=== PATIENT | female | born 1975 | race Caucasian/White ===

== ENCOUNTER 2017-04-01 18:24 | Emergency (ER) | payer SELFPAY, OTHER | END 2017-04-01 22:00 | disposition home or self-care (01) | LOC: M ED 18:24 | DX: J20.9 Acute bronchitis, unspecified (principal) | CPT/HCPCS: 71046 ==

== ENCOUNTER 2017-12-12 17:36 | Emergency (ER) | payer OTHER ==
[2017-12-12] MEDS: LIDOCAINE W/EPINEPHRINE 1% 20ML VIAL SC (18:00)
[2017-12-12] MEDS: NORCO, ANEXSIA 5/325MG TABLET (HYDROcodone/ACETAMINOPHEN) PO (18:30)
[2017-12-12] MEDS: CLINDAMYCIN 150 MG CAP PO (18:30)
== END 2017-12-12 18:49 | disposition home or self-care (01) ==
LOC: M ED 17:36
DX: L02.211 Cutaneous abscess of abdominal wall (principal); D64.9 Anemia, unspecified
CPT/HCPCS: 87186

== ENCOUNTER 2017-12-16 19:18 | Emergency (ER) | payer OTHER | END 2017-12-16 21:59 | disposition home or self-care (01) | LOC: M ED 19:18 | DX: Z48.00 Encounter for change or removal of nonsurgical wound dressing (principal); L02.211 Cutaneous abscess of abdominal wall; D64.9 Anemia, unspecified; Z79.2 Long term (current) use of antibiotics | CPT/HCPCS: 99283 ==

== ENCOUNTER 2018-04-17 10:31 | Emergency (ER) | payer OTHER ==
[~2018-04-17] VITALS: Ht 162.6 cm; Wt 114.1 kg
[~2018-04-17 10:31] MED LIST: CLEO300C2 PO; NORCOTAB PO; TESS100C PO; VENTAER IN
[2018-04-17] MEDS ORDERED: ACET1TAB55 PO (10:37)
[2018-04-17] MEDS ORDERED: CEFU50TA (10:37)
[2018-04-17] MEDS ORDERED: BENZ200C70 PO (12:25)
[2018-04-17] MEDS ORDERED: IBUP-1022 PO (12:25)
[2018-04-17] MEDS ORDERED: CLAR1TAB2 PO (12:25)
[2018-04-17] MEDS ORDERED: AFRI0.0511 (12:25)
[2018-04-17 12:31] VITALS: BP 119/74
== END 2018-04-17 12:37 | disposition home or self-care (01) ==
LOC: M ED 10:31
DX: J01.00 Acute maxillary sinusitis, unspecified (principal); Z79.899 Other long term (current) drug therapy

== ENCOUNTER → 2019-04-21 | Outpatient (REF) ==
[~2019-04-21] MED LIST changes: +ACET1TAB55 PO; +AFRI0.0511; +BENZ200C70 PO; +CEFU50TA; +CLAR1TAB2 PO; +HYDR-3715 PO; +IBUP-1022 PO; -NORCOTAB PO
[2019-04-22 10:45] LABS: RUBELLA IgG QUALITATIVE IMMUNE (IMMUNE)
== END ==
LOC: M LAB 09:42
PROVIDERS: ATTEND Nurse Practitioner Adult Health
DX: Z02.89 Encounter for other administrative examinations (principal)

== ENCOUNTER 2019-07-09 06:22 | Emergency (ER) | payer MEDICAID, OTHER ==
[~2019-07-09] VITALS: Ht 162.6 cm; Wt 104.8 kg
[2019-07-09] MEDS ORDERED: KETOROLAC 30 MG/ML 1ML VIAL IV ONE ×2 (07:00→08:30)
[2019-07-09 07:14] LABS: BASO % 0.4 % (0.0-1.0); EOS # 0.1 10^3/uL (0.0-0.5); EOS % 1.3 % (0.0-3.0); HEMATOCRIT 41.5 % (36.0-47.0); HEMOGLOBIN 12.8 g/dl (12.0-15.5); LYMPH # 1.6 10^3/uL (1.5-5.0); LYMPH % 18.8 % (24.0-44.0); MEAN CORPUSCULAR HEMOGLOBIN 24.3 pg (27.0-33.0); MEAN CORPUSCULAR HGB CONC 30.8 g/dl (32.0-36.5); MEAN CORPUSCULAR VOLUME 78.7 fl (80.0-96.0); MONO # 0.5 10^3/uL (0.0-0.8); MONO % 6.1 % (0.0-5.0); NEUTROPHILS # 6.1 10^3/uL (1.5-8.5); NEUTROPHILS % 73.2 % (36.0-66.0); PLATELET COUNT, AUTOMATED 294 10^3/uL (150-450); RED BLOOD COUNT 5.27 10^6/uL (4.00-5.40); WHITE BLOOD COUNT 8.3 10^3/uL (4.0-10.0)
[2019-07-09 07:46] LABS: ACETONE/KETONE 1.54 MG/DL (<2.81); ALBUMIN 3.7 GM/DL (3.2-5.2); ALT/SGPT 20 U/L (12-78); BILIRUBIN,DIRECT < 0.1 MG/DL (0.0-0.2); BILIRUBIN,TOTAL 0.4 MG/DL (0.2-1.0); CK-MB VALUE MASS < 1.0 NG/ML (<3.6); CPK CREATINE PHOSPHOKINASE 24 U/L (26-192); LIPASE 34 U/L (73-393); MB/CK RELATIVE INDEX 4.17 (< OR =4); TOTAL PROTEIN 7.6 GM/DL (6.4-8.2); TROPONIN I < 0.02 NG/ML (< 0.10)
--- NOTE | 2019-07-09 07:49 | REPVR ---
PROCEDURE INFORMATION: Exam: US Abdomen Limited, Right Upper Quadrant Exam date and time: 07/09/2019 7:07 AM Age: 44 years old Clinical indication: Abdominal pain; Flank; Right upper quadrant (ruq) TECHNIQUE: Imaging protocol: Real-time ultrasound of the abdomen with image documentation. Examination was focused on the right upper quadrant. COMPARISON: No relevant prior studies available. FINDINGS: Liver: The liver is increased in echotexture, suggesting fatty infiltration. There is no demonstrated mass or intrahepatic biliary ductal dilatation, evaluation for which is somewhat limited due to the increased echotexture. Gallbladder: The gallbladder is without demonstrated stones, sludge or wall thickening, and there is no pericholecystic fluid. Some punctate ring down artifact from its anterior wall at the fundus suggests adenomyomatosis. Sonographic Urbina sign was not commented on. Common bile duct: The common bile duct is normal in size for a patient of this age at 4.1 mm. Pancreas: The pancreas is largely obscured by overlying bowel gas. Right kidney: The right kidney measures 12.3 x 5.9 x 6.9 cm. Normal appearing echotexture. There is no hydronephrosis or demonstrated renal stone, cyst or mass. IMPRESSION: 1. Fatty liver. 2. No cholelithiasis or biliary ductal dilatation. 3. Punctate focus of adenomyomatosis at the fundus of the gallbladder. Electronically signed by: Brennen Davis On 07/09/2019 07:48:39 AM
--- NOTE | 2019-07-09 07:50 | REP ---
Clinical: Lower chest and abdominal pain Comparison: 04/01/2017 . Technique: PA and lateral. Findings: The mediastinum and cardiac silhouette are normal. The lung gutierrez are clear and without acute consolidation, effusion, or pneumothorax. The skeletal structures are intact and normal. Impression: 1. No acute cardiopulmonary process. Electronically Signed by Blair Lucero MD 07/09/2019 07:41 A
[2019-07-09] MEDS ORDERED: METF-791 PO (08:26)
[2019-07-09 08:52] LABS: HEMOGLOBIN A1c 11.3 %
[2019-07-09 08:53] VITALS: BP 126/62
--- NOTE | 2019-07-10 01:49 | ECGEPIP ---
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
== END 2019-07-09 08:55 | disposition home or self-care (01) ==
LOC: M ED 06:22
DX: M94.0 Chondrocostal junction syndrome [Tietze] (principal); E11.9 Type 2 diabetes mellitus without complications; K82.8 Other specified diseases of gallbladder; R94.31 Abnormal electrocardiogram [ECG] [EKG]; K76.0 Fatty (change of) liver, not elsewhere classified; D64.9 Anemia, unspecified; Z79.84 Long term (current) use of oral hypoglycemic drugs; Z79.899 Other long term (current) drug therapy
CPT/HCPCS: 71046; 76705; 80047; 80076; 82010; 82550; 82553; 83036; 83690; 84484; 84702; 85025; 93005; 96372; 99284; J1885

== ENCOUNTER → 2019-07-17 | Outpatient (REF) | payer OTHER, BC ==
[~2019-07-17] MED LIST changes: +METF-838 PO
[2019-07-17 17:12] LABS: BASO % 0.4 % (0.0-1.0); EOS # 0.1 10^3/uL (0.0-0.5); EOS % 1.8 % (0.0-3.0); HEMATOCRIT 38.2 % (36.0-47.0); HEMOGLOBIN 11.8 g/dl (12.0-15.5); LYMPH # 1.2 10^3/uL (1.5-5.0); LYMPH % 16.5 % (24.0-44.0); MEAN CORPUSCULAR HEMOGLOBIN 24.6 pg (27.0-33.0); MEAN CORPUSCULAR HGB CONC 30.9 g/dl (32.0-36.5); MEAN CORPUSCULAR VOLUME 79.7 fl (80.0-96.0); MONO # 0.4 10^3/uL (0.0-0.8); MONO % 5.7 % (0.0-5.0); NEUTROPHILS # 5.3 10^3/uL (1.5-8.5); NEUTROPHILS % 75.3 % (36.0-66.0); PLATELET COUNT, AUTOMATED 270 10^3/uL (150-450); RED BLOOD COUNT 4.79 10^6/uL (4.00-5.40); WHITE BLOOD COUNT 7.1 10^3/uL (4.0-10.0)
[2019-07-17 17:18] LABS: ALBUMIN 3.6 GM/DL (3.2-5.2); ALT/SGPT 47 U/L (12-78); BILIRUBIN,TOTAL 0.4 MG/DL (0.2-1.0); BLOOD UREA NITROGEN 17 MG/DL (7-18); CARBON DIOXIDE LEVEL 25 MEQ/L (21-32); CHLORIDE LEVEL 106 MEQ/L (98-107); CREATININE FOR GFR 0.64 MG/DL (0.55-1.30); GLOMERULAR FILTRATION RATE > 60.0 (>58); GLUCOSE, FASTING 265 MG/DL (70-100); POTASSIUM SERUM 3.6 MEQ/L (3.5-5.1); SODIUM LEVEL 138 MEQ/L (136-145); THYROID STIMULATING HORMONE 0.926 uIU/ML (0.358-3.740)
[2019-07-17 17:19] LABS: TOTAL 25(OH) VITAMIN D 11.5 NG/ML (30.0-100.0)
[2019-07-17 17:37] LABS: HEMOGLOBIN A1c 10.9 %
== END ==
LOC: M LAB REF 16:12
PROVIDERS: ATTEND Family Medicine
DX: E11.9 Type 2 diabetes mellitus without complications (principal)

== ENCOUNTER 2019-08-11 09:56 | Emergency (ER) | payer OTHER, BC ==
[~2019-08-11] VITALS: Ht 162.6 cm; Wt 103.8 kg
[2019-08-11] MEDS ORDERED: METF10004 (10:04)
[2019-08-11] MEDS ORDERED: ORPH100T (10:04)
[2019-08-11] MEDS ORDERED: CELE1CAP9 (10:04)
[2019-08-11] MEDS ORDERED: KETOROLAC 60MG 2ML VIAL IM ONE (11:00)
[2019-08-11] MEDS ORDERED: KETO10TAB PO (11:02)
[2019-08-11 11:08] VITALS: BP 149/85
== END 2019-08-11 11:36 | disposition home or self-care (01) ==
LOC: M ED 09:56
DX: M54.5 Low back pain (principal); M54.30 Sciatica, unspecified side; M62.830 Muscle spasm of back
CPT/HCPCS: 96372; 99283; J1885

== ENCOUNTER 2019-09-30 06:59 | Emergency (ER) | payer OTHER, BC ==
[~2019-09-30] VITALS: Ht 162.6 cm; Wt 107.8 kg
[~2019-09-30 06:59] MED LIST changes: +CELE1CAP9; +KETO10TAB PO; +METF10004 PO; +ORPH100T
[2019-09-30] MEDS ORDERED: NAPR1TAB86 PO (07:10)
[2019-09-30 07:50] LABS: BASO % 0.3 % (0.0-1.0); EOS # 0.1 10^3/uL (0.0-0.5); EOS % 1.3 % (0.0-3.0); HEMATOCRIT 38.2 % (36.0-47.0); LYMPH # 1.4 10^3/uL (1.5-5.0); LYMPH % 14.5 % (24.0-44.0); MEAN CORPUSCULAR HEMOGLOBIN 24.9 pg (27.0-33.0); MEAN CORPUSCULAR HGB CONC 31.4 g/dl (32.0-36.5); MEAN CORPUSCULAR VOLUME 79.3 fl (80.0-96.0); MONO # 0.5 10^3/uL (0.0-0.8); MONO % 4.8 % (0.0-5.0); NEUTROPHILS # 7.4 10^3/uL (1.5-8.5); NEUTROPHILS % 78.9 % (36.0-66.0); PLATELET COUNT, AUTOMATED 300 10^3/uL (150-450); RED BLOOD COUNT 4.82 10^6/uL (4.00-5.40); WHITE BLOOD COUNT 9.3 10^3/uL (4.0-10.0)
[2019-09-30 08:19] LABS: ALBUMIN 3.5 GM/DL (3.2-5.2); ALT/SGPT 46 U/L (12-78); BILIRUBIN,DIRECT 0.1 MG/DL (0.0-0.2); BILIRUBIN,TOTAL 0.5 MG/DL (0.2-1.0); BLOOD UREA NITROGEN 9 MG/DL (7-18); CARBON DIOXIDE LEVEL 26 MEQ/L (21-32); CHLORIDE LEVEL 109 MEQ/L (98-107); CREATININE FOR GFR 0.67 MG/DL (0.55-1.30); GLOMERULAR FILTRATION RATE > 60.0 (>58); GLUCOSE, FASTING 135 MG/DL (70-100); LIPASE 32 U/L (73-393); POTASSIUM SERUM 3.6 MEQ/L (3.5-5.1); SODIUM LEVEL 141 MEQ/L (136-145); TOTAL PROTEIN 7.3 GM/DL (6.4-8.2)
[2019-09-30] MEDS ORDERED: ACETAMINOPHEN 500 MG TAB PO ONE (08:30)
[2019-09-30] MEDS ORDERED: IBUPROFEN 600MG TAB PO ONE (08:30)
[2019-09-30] MEDS ORDERED: LIDOCAINE 5% (LIDODERM) PATCH TD ONE (08:30)
[2019-09-30 10:31] VITALS: BP 157/86
[2019-09-30] MEDS ORDERED: **NOTE PATIENT COMMENT** MISC XX SCH (21:00)
== END 2019-09-30 10:36 | disposition home or self-care (01) ==
LOC: M ED 06:59
DX: M51.26 Other intervertebral disc displacement, lumbar region (principal); M51.27 Other intervertebral disc displacement, lumbosacral region; Y99.0 Civilian activity done for income or pay; D64.9 Anemia, unspecified; E11.9 Type 2 diabetes mellitus without complications; Z79.84 Long term (current) use of oral hypoglycemic drugs; Z79.899 Other long term (current) drug therapy

== ENCOUNTER 2019-10-23 10:53 | Emergency (ER) | payer OTHER, BC ==
[~2019-10-23 10:53] MED LIST changes: +NAPR1TAB86 PO
[2019-10-23] MEDS ORDERED: CYCLOBENZAPRINE 10MG TABLET As Ordered ONE (11:25)
[2019-10-23] MEDS ORDERED: CYCLOBENZAPRINE 10MG TABLET ONE (11:25)
[2019-10-23] MEDS ORDERED: KETOROLAC TROMETHAMINE 10 MG TAB ONE (11:25)
[2019-10-23] MEDS ORDERED: KETOROLAC TROMETHAMINE 10 MG TAB As Ordered ONE (11:25)
== END 2019-10-23 11:39 | disposition home or self-care (01) ==
LOC: M ED 10:53
DX: M54.41 Lumbago with sciatica, right side (principal); E11.9 Type 2 diabetes mellitus without complications; Z79.84 Long term (current) use of oral hypoglycemic drugs; Z79.899 Other long term (current) drug therapy

== ENCOUNTER → 2019-11-20 | Outpatient (REF) | payer MEDICAID, OTHER ==
[2019-11-20 13:46] LABS: BASO % 0.3 % (0.0-1.0); EOS # 0.2 10^3/uL (0.0-0.5); EOS % 2.1 % (0.0-3.0); HEMATOCRIT 39.9 % (36.0-47.0); HEMOGLOBIN 12.2 g/dl (12.0-15.5); LYMPH # 1.6 10^3/uL (1.5-5.0); LYMPH % 18.3 % (24.0-44.0); MEAN CORPUSCULAR HEMOGLOBIN 25.1 pg (27.0-33.0); MEAN CORPUSCULAR HGB CONC 30.6 g/dl (32.0-36.5); MEAN CORPUSCULAR VOLUME 82.1 fl (80.0-96.0); MONO # 0.5 10^3/uL (0.0-0.8); MONO % 6.1 % (0.0-5.0); NEUTROPHILS # 6.4 10^3/uL (1.5-8.5); NEUTROPHILS % 72.9 % (36.0-66.0); PLATELET COUNT, AUTOMATED 349 10^3/uL (150-450); RED BLOOD COUNT 4.86 10^6/uL (4.00-5.40); WHITE BLOOD COUNT 8.7 10^3/uL (4.0-10.0)
[2019-11-20 13:47] LABS: BLOOD UREA NITROGEN 13 MG/DL (7-18); CREATININE FOR GFR 0.57 MG/DL (0.55-1.30); GLUCOSE, FASTING 138 MG/DL (70-100)
[2019-11-20 13:48] LABS: ALBUMIN 3.8 GM/DL (3.2-5.2); ALT/SGPT 34 U/L (12-78); BILIRUBIN,TOTAL 0.5 MG/DL (0.2-1.0); CALCIUM LEVEL 9.1 MG/DL (8.5-10.1); CARBON DIOXIDE LEVEL 26 MEQ/L (21-32); CHLORIDE LEVEL 108 MEQ/L (98-107); CHOLESTEROL LEVEL 222 MG/DL (<200); GLOMERULAR FILTRATION RATE > 60.0 (>58); HDL CHOLESTEROL 40 MG/DL (>40); LDL CHOLESTEROL 158 MG/DL (<100); NON-HDL-C 182 MG/DL; POTASSIUM SERUM 3.9 MEQ/L (3.5-5.1); SODIUM LEVEL 138 MEQ/L (136-145); TOTAL PROTEIN 7.5 GM/DL (6.4-8.2); TRIGLYCERIDES LEVEL 120 MG/DL (<150)
[2019-11-20 14:48] LABS: MALB URINE SIEMENS 21.2 MG/L; MAU/CREAT RATIO 10.3 MCG/MG (0.0-30.0)
[2019-11-20 15:14] LABS: HEMOGLOBIN A1c 6.5 %
== END ==
LOC: M LAB REF 12:10
PROVIDERS: ATTEND Physician Assistant
DX: E11.9 Type 2 diabetes mellitus without complications (principal)

== ENCOUNTER → 2019-11-25 | Outpatient (REF) | payer OTHER, MEDICAID | LOC: M LAB REF 17:23 | PROVIDERS: ATTEND Physician Assistant | DX: Z12.4 Encounter for screening for malignant neoplasm of cervix (principal) ==

== ENCOUNTER → 2019-12-04 | Outpatient (CLI) | payer BC, OTHER ==
--- NOTE | 2019-12-09 09:34 | REP ---
PELVIC ULTRASOUND CLINICAL: Enlarged uterus. TECHNIQUE: Transabdominal pelvic ultrasound followed by transvaginal examination for better evaluation of the endometrium and adnexa with color Doppler evaluation of the ovaries. FINDINGS: The uterus is heterogeneous and enlarged measuring 16.8 x 10.1 x 13.2 cm. The endometrial complex is irregularly thickened to 36.7 mm and there is suggestion for an endometrial mass measuring 4.7 x 2.4 x 2.2 cm. Small amount of endocervical fluid is also appreciated. Right ovary not visualized on either transabdominal or transvaginal imaging. Left ovary measures 4.5 x 3.3 x 4.7 cm (RI 0.74) and includes a 3.7 x 3.2 x 4.2 cm complex structure possibly representing mass versus hemorrhagic cyst versus endometrioma. No pelvic fluid or adnexal mass lesion. IMPRESSION: * Enlarged heterogeneous uterus with endometrial thickening and suspected endometrial mass. * Left ovary includes a 4.2 cm complex lesion. Differential diagnosis including hemorrhagic cyst, endometrioma. Consider reevaluation in four to six weeks to evaluate for resolution and/or pelvic MRI for further investigation. MTDD
--- NOTE | 2019-12-09 09:35 | REP ---
LIMITED ABDOMINAL ULTRASOUND: CLINICAL: Splenic mass. TECHNIQUE: Real time, mcnamara scale and color Doppler evaluation using curved array transducer. FINDINGS: The left kidney is normal in appearance and without hydronephrosis measuring 12.1 x 6.1 x 4.8 cm. The spleen is normal in parenchymal echotexture and measures 12.6 x 5.5 x 12.6 cm. No obvious mass lesion in the left upper quadrant. IMPRESSION: Mildly enlarged spleen without focal splenic lesion identified. MTDD
== END ==
LOC: M RAD 08:32
PROVIDERS: ATTEND Physician Assistant
DX: N85.2 Hypertrophy of uterus (principal); R16.1 Splenomegaly, not elsewhere classified

== ENCOUNTER 2020-02-03 07:00 | Outpatient (RCR) | payer OTHER | END 2020-02-08 | LOC: M PT 07:00 | PROVIDERS: ATTEND Physician Assistant | DX: M51.36 Other intervertebral disc degeneration, lumbar region (principal); M48.061 Spinal stenosis, lumbar region without neurogenic claudication ==

== ENCOUNTER 2020-02-10 07:00 | Outpatient (RCR) | payer OTHER | END 2020-03-10 | LOC: M PT 07:00 | PROVIDERS: ATTEND Physician Assistant | DX: Z47.89 Encounter for other orthopedic aftercare (principal); M51.36 Other intervertebral disc degeneration, lumbar region; M48.061 Spinal stenosis, lumbar region without neurogenic claudication ==

== ENCOUNTER → 2020-02-12 | Outpatient (REF) | payer BC, OTHER ==
[2020-02-12 13:15] LABS: ALBUMIN 3.3 GM/DL (3.2-5.2); ALT/SGPT 22 U/L (12-78); BILIRUBIN,TOTAL 0.3 MG/DL (0.2-1.0); BLOOD UREA NITROGEN 12 MG/DL (7-18); CALCIUM LEVEL 8.8 MG/DL (8.5-10.1); CARBON DIOXIDE LEVEL 26 MEQ/L (21-32); CHLORIDE LEVEL 110 MEQ/L (98-107); CREATININE FOR GFR 0.62 MG/DL (0.55-1.30); GLOMERULAR FILTRATION RATE > 60.0 (>58); GLUCOSE, FASTING 143 MG/DL (70-100); POTASSIUM SERUM 4.2 MEQ/L (3.5-5.1); SODIUM LEVEL 141 MEQ/L (136-145); TOTAL PROTEIN 7.1 GM/DL (6.4-8.2)
[2020-02-12 13:25] LABS: HEMOGLOBIN A1c 7.1 %
== END ==
LOC: M LAB REF 12:00
PROVIDERS: ATTEND Physician Assistant
DX: E11.9 Type 2 diabetes mellitus without complications (principal)

== ENCOUNTER → 2020-02-16 | Outpatient (CLI) | payer SELFPAY | LOC: M LABSMTC 14:16 | PROVIDERS: ATTEND Pediatrics | DX: Z11.59 Encounter for screening for other viral diseases (principal) ==

== ENCOUNTER → 2020-05-12 | Outpatient (CLI) | payer OTHER ==
[2020-05-12 11:07] LABS: URINE PREG TEST NEGATIVE (NEGATIVE)
[2020-05-12 11:20] LABS: INR 0.98; PROTHROMBIN TIME 13.2 SECONDS (12.5-14.3)
[2020-05-12 11:21] LABS: PARTIAL THROMBOPLASTIN TIME 25.2 SECONDS (24.2-38.5)
[2020-05-12 11:26] LABS: COLLAGEN EPINEPHRINE 142 SECONDS (74-162)
== END ==
LOC: M LAB 10:24
PROVIDERS: ATTEND Physician Assistant
DX: M47.27 Other spondylosis with radiculopathy, lumbosacral region (principal)

== ENCOUNTER → 2020-06-03 | Outpatient (REF) | payer BC, OTHER ==
[2020-06-03 12:04] LABS: HEMOGLOBIN A1c 8.9 %
[2020-06-03 12:22] LABS: ALBUMIN 3.6 GM/DL (3.2-5.2); ALT/SGPT 25 U/L (12-78); BILIRUBIN,TOTAL 0.3 MG/DL (0.2-1.0); BLOOD UREA NITROGEN 11 MG/DL (7-18); CALCIUM LEVEL 8.9 MG/DL (8.5-10.1); CARBON DIOXIDE LEVEL 24 MEQ/L (21-32); CHLORIDE LEVEL 106 MEQ/L (98-107); CHOLESTEROL LEVEL 192 MG/DL (<200); CHOLESTEROL RISK RATIO 5.485 (<5); CREATININE FOR GFR 0.49 MG/DL (0.55-1.30); GLOMERULAR FILTRATION RATE > 60.0 (>58); GLUCOSE, FASTING 207 MG/DL (70-100); HDL CHOLESTEROL 35 MG/DL (>40); LDL CHOLESTEROL 139 MG/DL (<100); NON-HDL-C 157 MG/DL; POTASSIUM SERUM 3.7 MEQ/L (3.5-5.1); SODIUM LEVEL 139 MEQ/L (136-145); TOTAL PROTEIN 6.9 GM/DL (6.4-8.2); TRIGLYCERIDES LEVEL 90 MG/DL (<150)
== END ==
LOC: M LAB REF 11:14
PROVIDERS: ATTEND Physician Assistant
DX: E11.9 Type 2 diabetes mellitus without complications (principal)

== ENCOUNTER → 2020-06-08 | Outpatient (CLI) | payer OTHER ==
[2020-06-08 07:17] LABS: PLATELET COUNT, AUTOMATED 312 10^3/uL (150-450)
== END ==
LOC: M LAB 06:57
PROVIDERS: ATTEND Physical Medicine & Rehabilitation
DX: Z01.812 Encounter for preprocedural laboratory examination (principal)

== ENCOUNTER → 2020-06-30 | Outpatient (CLI) | payer BC ==
[~2020-06-30] MED LIST changes: +PROHANCE 279.3MG/ML 15ML VIAL As Ordered ONE; +PROHANCE 279.3MG/ML 5ML VIAL As Ordered ONE
--- NOTE | 2020-06-30 15:42 | REP ---
INDICATION: OVARIAN CYST, SPLEENIC MASS, MASS VS ENDOMETRIOMA. COMPARISON: Comparison sonography is reviewed from December 04, 2019. TECHNIQUE: Axial, sagittal, and coronal oblique imaging planes are utilized. T1 and T2 weighted scans are included with without fat saturation. Pre and post gadolinium enhanced imaging is acquired. 20 mL of intravenous ProHance is administered.. FINDINGS: There is moderate to marked heterogeneous uterine enlargement. Overall dimensions the uterus are 14.9 cm in cervical fundal dimension by 10.3 cm anterior to posterior by 11.8 cm right to left there are small nabothian cysts in the cervix. There is diffuse myometrial thickening, posteriorly much greater than anteriorly. The junctional zone is not well defined. There is a lobulated contour to the posterior endometrial surface. The endometrial cavity is displaced anteriorly in the uterus by this eccentrically thickened posterior tissue. The findings are suggestive of adenomyosis but may reflect atypical fibroids. There is no evidence of pelvic adenopathy or free fluid. No ovarian cyst or mass is seen on either side at this juncture. Cortical and medullary bone signal intensity are normal. IMPRESSION: Heterogeneous enlargement of the uterus with poor visualization and definition of the junctional zone. Findings most consistent with uterine adenomyosis. Differential possibilities include uterine leiomyoma ptosis versus other uterine neoplasm. <Electronically signed by Darron Collins > 06/30/20 [id number]
--- NOTE | 2020-06-30 15:45 | REP ---
INDICATION: OVARIAN CYST, SPLEENIC MASS, MASS VS ENDOMETRIOMA. Slightly enlarged spleen on imaging. Complex ovarian cyst versus mass versus endometrioma. COMPARISON: Comparison right upper quadrant sonography July 09, 2019.. TECHNIQUE: Axial and coronal imaging planes utilized. T1 and T2 weighted sequences include spin echo, fast spin echo, diffusion-weighted scans, gradient echo, in and out of phase, and dynamic post-contrast images. 20 mL of intravenous ProHance is administered. FINDINGS: Rrrrrrr the spleen is at the upper range of normal in size measuring 12.3 cm in greatest dimension. There is no significant focal splenic lesion. The liver is homogeneous in texture and appears normal in size. No adrenal lesion is seen on either side. There is a small accessory splenule posterior to the spleen. No renal lesion is seen. No abnormality is noted in the pancreas. No biliary ductal or gallbladder abnormality is appreciated. The gallbladder is largely contracted at the time of scanning. Diffusion-weighted imaging is unremarkable. There is no evidence of upper abdominal adenopathy or ascites. Dynamically acquired sequential postcontrast images show no abnormal area of contrast enhancement in the upper abdominal viscera. IMPRESSION: Borderline size spleen. Small accessory splenule. Otherwise negative. <Electronically signed by Darron Collins > 06/30/20 [id number]
== END ==
LOC: M RAD 12:32
PROVIDERS: ATTEND Physician Assistant
DX: N83.299 Other ovarian cyst, unspecified side (principal)

== ENCOUNTER → 2020-09-10 | Outpatient (CLI) | payer OTHER ==
[~2020-09-10] MED LIST changes: +FARX1TAB3 PO; +METF-877 PO; -PROHANCE 279.3MG/ML 15ML VIAL As Ordered ONE; -PROHANCE 279.3MG/ML 5ML VIAL As Ordered ONE
== END ==
LOC: M LABSMTC 09:09
PROVIDERS: ATTEND Anesthesiology
DX: Z20.828 Contact with and (suspected) exposure to other viral communicable diseases (principal); Z11.59 Encounter for screening for other viral diseases

== ENCOUNTER 2020-09-15 10:36 | Day surgery (SDC) | payer BC, OTHER ==
[~2020-09-15] VITALS: Ht 162.6 cm; Wt 110.9 kg
[~2020-09-15 10:36] MED LIST changes: +KETOROLAC 60MG 2ML VIAL As Ordered ONE; +LIDOCAINE 2% 100MG/5ML SDV (FOR ANES.) As Ordered ONE; +LIDOCAINE 2% INJ 100 MG/5 ML SYRINGE As Ordered ONE; +LR 1,000 ML IV ONE; +LR 1,000 ML IV SCH; +MIDAZOLAM INJ 2MG/2ML VIAL (J2250 PER 1MG) As Ordered ONE; +ONDANSETRON 4MG/2ML VIAL As Ordered ONE; +dexameTHASONE 4 MG/ML 1ML VIAL (J1100 PER 1MG) As Ordered ONE; +fentaNYL 100 MCG/2 ML INJECTION (J3010) As Ordered ONE; +propofoL 200 MG/20 ML VIAL As Ordered ONE
[2020-09-15] MEDS ORDERED: SUGAMMADEX SODIUM 500 MG/5 ML VIAL (BRIDION) As Ordered ONE (12:39)
[2020-09-15] MEDS ORDERED: ROCURONIUM BROMIDE 50 MG/5 ML VIAL As Ordered ONE ×2 (12:39→12:57)
[2020-09-15] MEDS ORDERED: LABETALOL 100MG/20ML VIAL As Ordered ONE (13:35)
[2020-09-15] MEDS ORDERED: fentaNYL 100 MCG/2 ML INJECTION (J3010) As Ordered ONE (13:37)
[2020-09-15] MEDS ORDERED: MEPERIDINE INJ 25 MG/ML VIAL (J2175) IV PRN (14:20)
[2020-09-15] MEDS ORDERED: oxyCODONE 5MG TAB PO PRN (14:20)
[2020-09-15] MEDS ORDERED: fentaNYL 100 MCG/2 ML INJECTION (J3010) IV PRN (14:20)
[2020-09-15] MEDS ORDERED: ONDANSETRON 4MG/2ML VIAL IV PRN (14:20)
[2020-09-15] MEDS ORDERED: LR 1,000 ML IV SCH ×2 (14:20→15:25)
[2020-09-15] MEDS ORDERED: ALBUTEROL SULFATE 2.5 MG/0.5 ML INH NEB SOLN INH ONE (14:50)
--- NOTE | 2020-09-15 15:23 | RO ---
OPERATIVE NOTE DATE OF OPERATION: 09/15/2020 PREOPERATIVE DIAGNOSIS/INDICATION FOR SURGERY: Bleeding and abnormal ultrasound. POSTOPERATIVE DIAGNOSIS: Bleeding and abnormal ultrasound with excessive overgrowth of endometrium noted. PROCEDURE: D&C, hysteroscopy, MyoSure resection. 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 ANESTHESIA: General endotracheal. SPECIMEN: Endometrial overgrowth, possible lesion. DESCRIPTION OF PROCEDURE/FINDINGS: Maco was brought to the operating room where sufficient general endotracheal anesthesia was induced. She was prepped, draped and positioned in the usual sterile fashion. Bladder was emptied. The anterior aspect of the cervix was grasped with single tooth tenaculum and this well supported uterus. The cervix was then carefully dilated and hysteroscope placed. Multiple polypoid overgrowths were noted with frond-like hypervascular concerning appearance. I did not see any ulcerations or active bleeding. The cavity was definitely enlarged and filled with this. We did resect with the MyoSure under direct visualization to make sure that we did not have any perforations even though the cavity was somewhat enlarged. We really could not, when we were resecting with the MyoSure, the hypervascularity led to quite a bit of bleeding which led to poor visualization. We switched over to curettage, especially since I was expecting the pathologist to prefer a larger sample and there was clearly a larger sample to be had. It was also clear that we would not be able to completely empty the endometrial cavity with the MyoSure even if we worked for a protracted period of time, there would just be so much vascularity that the risk of fluid overload was too great. We switched over to more traditional curettage and multiple large samples, some of them up to a centimeter across, were obtained. When we had a reasonable good sample and not excessive bleeding we went ahead and stopped. I massaged the uterus a little bit and ended the procedure. EBL: Maybe 10 mL. FLUID REPLACEMENT: Crystalloid. COMPLICATIONS: None. CONDITION AND DISPOSITION: Maco tolerated the procedure well and was recovering in the recovery room in good condition. Pathology went to the pathologist for permanent evaluation and we will let her know as soon as we have those results.
[2020-09-15 15:55] VITALS: BP 141/77
[2020-09-16] MEDS ORDERED: UNRESOLVED CLARIFICATION ENTRY XX SCH (00:01)
== END 2020-09-15 16:12 | disposition home or self-care (01) ==
LOC: M SDC 10:36
PROVIDERS: ATTEND Obstetrics & Gynecology
DX: C54.1 Malignant neoplasm of endometrium (principal); N85.2 Hypertrophy of uterus; R93.89 Abnormal findings on diagnostic imaging of other specified body structures; E11.9 Type 2 diabetes mellitus without complications; E78.5 Hyperlipidemia, unspecified; G44.219 Episodic tension-type headache, not intractable; R16.1 Splenomegaly, not elsewhere classified; M51.14 Intervertebral disc disorders with radiculopathy, thoracic region; N83.292 Other ovarian cyst, left side; Z79.84 Long term (current) use of oral hypoglycemic drugs
CPT/HCPCS: 58558; 81025; 88304; J1100; J1885; J2250; J2405; J3010

== ENCOUNTER 2020-10-04 01:10 | Emergency (ER) | payer BC, OTHER ==
[~2020-10-04] VITALS: Ht 162.6 cm; Wt 109.0 kg
[~2020-10-04 01:10] MED LIST changes: -KETOROLAC 60MG 2ML VIAL As Ordered ONE; -LIDOCAINE 2% 100MG/5ML SDV (FOR ANES.) As Ordered ONE; -LIDOCAINE 2% INJ 100 MG/5 ML SYRINGE As Ordered ONE; -LR 1,000 ML IV ONE; -LR 1,000 ML IV SCH; -MIDAZOLAM INJ 2MG/2ML VIAL (J2250 PER 1MG) As Ordered ONE; -ONDANSETRON 4MG/2ML VIAL As Ordered ONE; -dexameTHASONE 4 MG/ML 1ML VIAL (J1100 PER 1MG) As Ordered ONE; -fentaNYL 100 MCG/2 ML INJECTION (J3010) As Ordered ONE; -propofoL 200 MG/20 ML VIAL As Ordered ONE
[2020-10-04 05:32] VITALS: BP 142/66
== END 2020-10-04 06:58 | disposition left against medical advice (07) ==
LOC: M ED 01:10
DX: Z53.21 Procedure and treatment not carried out due to patient leaving prior to being seen by health care provider (principal)

== ENCOUNTER 2020-10-05 11:19 | Emergency (ER) | payer BC, OTHER ==
[~2020-10-05] VITALS: Ht 162.6 cm; Wt 108.7 kg
--- NOTE | 2020-10-05 14:50 | REP ---
INDICATION: mid to lower rib pain after fall. COMPARISON: Comparison chest x-ray July 09, 2019.. TECHNIQUE: Five views including PA chest. FINDINGS: PA chest radiograph shows no evidence of pneumothorax or hydrothorax. Mediastinum is not widened. Pleural angles are sharp. Heart size is normal. Lung gutierrez are clear. Multiple views of the left ribcage show no evidence of rib fracture or bony destructive lesion. IMPRESSION: Negative left rib radiographic series. <Electronically signed by Darron Collins > 10/05/20 [id number]
[2020-10-05] MEDS ORDERED: IBUPROFEN 800 MG TAB PO ONE (15:15)
[2020-10-05 15:41] VITALS: BP 135/60
--- NOTE | 2020-10-05 16:11 | REP ---
INDICATION: pain and bruising after fall. COMPARISON: None. TECHNIQUE: Four views FINDINGS: Plantar and Achilles insertion spurs are prominent on posterior calcaneus. Subtalar joints intact. Calcaneus and talus without fracture. Accessory ossicle adjacent to the medial proximal aspect of the navicular. Tarsal bones and their articulations otherwise normal. Metatarsals and their articulations were also unremarkable with no fracture, avulsion other acute bony abnormality. Phalanges show a subtle lucency transversely in the proximal diametaphysis of the proximal phalanx of the 5th toe. This could be a nondisplaced fracture. IMPRESSION: 1. Subtle transverse lucency in the proximal metadiaphysis of the proximal phalanx of the 5th toe on 3 of 4 images suggesting nondisplaced fracture. Please correlate clinically with palpation. I have placed arrows on the images over the area in question. No other finding. <Electronically signed by Emerson Antonio > 10/05/20 [id number]
== END 2020-10-05 15:43 | disposition home or self-care (01) ==
LOC: M ED 11:19
DX: S92.515A Nondisplaced fracture of proximal phalanx of left lesser toe(s), initial encounter for closed fracture (principal); R07.81 Pleurodynia; W01.0XXA Fall on same level from slipping, tripping and stumbling without subsequent striking against object, initial encounter; Y92.019 Unspecified place in single-family (private) house as the place of occurrence of the external cause; Y93.9 Activity, unspecified; Y99.9 Unspecified external cause status; E11.9 Type 2 diabetes mellitus without complications; D64.9 Anemia, unspecified; Z79.899 Other long term (current) drug therapy

== ENCOUNTER → 2020-10-05 | Outpatient (CLI) | payer OTHER, BC ==
[2020-10-05 11:10] LABS: BASO % 0.3 % (0.0-1.0); EOS # 0.2 10^3/uL (0.0-0.5); EOS % 1.6 % (0.0-3.0); HEMATOCRIT 34.6 % (36.0-47.0); LYMPH # 1.3 10^3/uL (1.5-5.0); LYMPH % 13.3 % (24.0-44.0); MEAN CORPUSCULAR HEMOGLOBIN 21.2 pg (27.0-33.0); MEAN CORPUSCULAR HGB CONC 28.9 g/dl (32.0-36.5); MEAN CORPUSCULAR VOLUME 73.5 fl (80.0-96.0); MONO # 0.5 10^3/uL (0.0-0.8); MONO % 4.9 % (2.0-8.0); NEUTROPHILS # 7.9 10^3/uL (1.5-8.5); NEUTROPHILS % 79.6 % (36.0-66.0); PLATELET COUNT, AUTOMATED 373 10^3/uL (150-450); RED BLOOD COUNT 4.71 10^6/uL (4.00-5.40); WHITE BLOOD COUNT 9.9 10^3/uL (4.0-10.0)
[2020-10-05 11:30] LABS: C REACTIVE PROTEIN QUANTITATIV 2.43 MG/DL (0.00-0.30); RHEUMATOID FACTOR QUANT < 10.0 IU/ML (<15.0); URIC ACID 2.7 MG/DL (2.6-6.0)
[2020-10-05 11:31] LABS: ERYTHROCYTE SEDIMENTATION RATE 58 mm/hr (0-20)
== END ==
LOC: M LAB 10:30
PROVIDERS: ATTEND Physician Assistant Surgical
DX: M47.27 Other spondylosis with radiculopathy, lumbosacral region (principal)

== ENCOUNTER → 2021-02-06 | Outpatient (CLI) | payer OTHER | LOC: M PLAIMG 14:05 | PROVIDERS: ATTEND Physician Assistant Surgical | DX: M47.27 Other spondylosis with radiculopathy, lumbosacral region (principal); M51.26 Other intervertebral disc displacement, lumbar region; M51.27 Other intervertebral disc displacement, lumbosacral region ==

== ENCOUNTER → 2021-03-23 | Outpatient (CLI) | payer BC, MEDICAID | LOC: M WHC 09:44 | PROVIDERS: ATTEND Pediatrics | DX: Z12.31 Encounter for screening mammogram for malignant neoplasm of breast (principal); E89.41 Symptomatic postprocedural ovarian failure; Z13.820 Encounter for screening for osteoporosis; M85.88 Other specified disorders of bone density and structure, other site ==

== ENCOUNTER → 2021-04-04 | Outpatient (CLI) | payer BC, MEDICAID | LOC: M LAB 06:30 | PROVIDERS: ATTEND Physical Medicine & Rehabilitation | DX: M51.27 Other intervertebral disc displacement, lumbosacral region (principal) ==

== ENCOUNTER → 2021-05-08 | Outpatient (RCR) | payer OTHER | LOC: M PT 07:58 | PROVIDERS: ATTEND Physical Medicine & Rehabilitation | DX: M47.26 Other spondylosis with radiculopathy, lumbar region (principal) ==

== ENCOUNTER → 2021-06-29 | Outpatient (CLI) | payer BC, MEDICAID ==
[~2021-06-29] MED LIST changes: +ATOR40TA75; +NAPR-837 PO; +SEMA7TAB2
== END ==
LOC: M SOG 08:12
PROVIDERS: ATTEND Physician Assistant
DX: M19.041 Primary osteoarthritis, right hand (principal); M19.042 Primary osteoarthritis, left hand; M79.645 Pain in left finger(s)

== ENCOUNTER → 2021-07-07 | Outpatient (CLI) | payer BC, MEDICAID | LOC: M LABSMTC 11:43 | PROVIDERS: ATTEND Anesthesiology | DX: Z01.812 Encounter for preprocedural laboratory examination (principal); Z20.822 Contact with and (suspected) exposure to COVID-19 ==

== ENCOUNTER 2021-07-12 07:01 | Day surgery (SDC) | payer BC, MEDICAID ==
[~2021-07-12] VITALS: Ht 162.6 cm; Wt 114.8 kg
[~2021-07-12 07:01] MED LIST changes: +LIDOCAINE W/EPINEPHRINE 1% 20ML VIAL XX ONE; +SODIUM BICARBONATE 8.4% INJ 50MEQ 50 ML VIAL XX ONE
[2021-07-12 10:30] VITALS: BP 120/76
== END 2021-07-12 10:37 | disposition home or self-care (01) ==
LOC: M SDC 07:01
PROVIDERS: ATTEND Orthopaedic Surgery Hand Surgery
DX: M65.312 Trigger thumb, left thumb (principal); E78.5 Hyperlipidemia, unspecified; E11.9 Type 2 diabetes mellitus without complications; Z85.42 Personal history of malignant neoplasm of other parts of uterus; Z79.84 Long term (current) use of oral hypoglycemic drugs; Z79.899 Other long term (current) drug therapy

== ENCOUNTER → 2021-07-24 | Outpatient (CLI) | payer BC, MEDICAID ==
[~2021-07-24] MED LIST changes: -LIDOCAINE W/EPINEPHRINE 1% 20ML VIAL XX ONE; -SODIUM BICARBONATE 8.4% INJ 50MEQ 50 ML VIAL XX ONE
== END ==
LOC: M LABSMTC 09:32
PROVIDERS: ATTEND Anesthesiology
DX: Z01.812 Encounter for preprocedural laboratory examination (principal); Z20.822 Contact with and (suspected) exposure to COVID-19

== ENCOUNTER 2021-07-28 08:31 | Day surgery (SDC) | payer BC, MEDICAID ==
[~2021-07-28] VITALS: Ht 162.6 cm; Wt 115.1 kg
[~2021-07-28 08:31] MED LIST changes: +ATOR40TA75 PO; +LIDOCAINE W/EPINEPHRINE 1% 20ML VIAL XX ONE; +MELO15TA28 PO; +SEMA3TAB4 PO; -SEMA7TAB2; +SEMA7TAB2 PO; +SODIUM BICARBONATE 8.4% INJ 50MEQ 50 ML VIAL XX ONE
[2021-07-28] MEDS ORDERED: propofoL 200 MG/20 ML VIAL As Ordered ONE (09:20)
[2021-07-28] MEDS ORDERED: LIDOCAINE 2% 100MG/5ML SDV (FOR ANES.) As Ordered ONE (09:20)
[2021-07-28] MEDS ORDERED: MIDAZOLAM INJ 2MG/2ML VIAL (J2250 PER 1MG) As Ordered ONE (09:20)
[2021-07-28] MEDS ORDERED: fentaNYL 100 MCG/2 ML INJECTION As Ordered ONE (09:20)
[2021-07-28] MEDS ORDERED: KETAMINE HCL 200 MG/20 ML VIAL As Ordered ONE (09:21)
[2021-07-28] MEDS ORDERED: KETOROLAC 60MG 2ML VIAL As Ordered ONE (09:21)
[2021-07-28] MEDS ORDERED: ONDANSETRON 4MG/2ML VIAL As Ordered ONE (09:21)
[2021-07-28] MEDS ORDERED: dexameTHASONE 4 MG/ML 1ML VIAL (J1100 PER 1MG) As Ordered ONE (09:21)
[2021-07-28] MEDS ORDERED: BACITRACIN OINTMENT 30GM TUBE As Ordered ONE (10:19)
[2021-07-28 11:12] VITALS: BP 121/90
[2021-07-28] MEDS ORDERED: TRAM50TA2 PO (11:14)
== END 2021-07-28 11:44 | disposition home or self-care (01) ==
LOC: M SDC 08:31
PROVIDERS: ATTEND Orthopaedic Surgery Hand Surgery
DX: M65.331 Trigger finger, right middle finger (principal); E78.5 Hyperlipidemia, unspecified; E11.9 Type 2 diabetes mellitus without complications; Z79.84 Long term (current) use of oral hypoglycemic drugs; Z79.899 Other long term (current) drug therapy

== ENCOUNTER → 2021-08-20 | Outpatient (CLI) | payer BC, MEDICAID ==
[~2021-08-20] MED LIST changes: -LIDOCAINE W/EPINEPHRINE 1% 20ML VIAL XX ONE; -SODIUM BICARBONATE 8.4% INJ 50MEQ 50 ML VIAL XX ONE; +TRAM50TA2 PO
== END ==
LOC: M LABSMTC 11:12
PROVIDERS: ATTEND Anesthesiology
DX: Z20.828 Contact with and (suspected) exposure to other viral communicable diseases (principal); Z11.59 Encounter for screening for other viral diseases

== ENCOUNTER 2021-08-23 07:58 | Day surgery (SDC) | payer BC, MEDICAID ==
[~2021-08-23] VITALS: Ht 162.6 cm; Wt 114.2 kg
[~2021-08-23 07:58] MED LIST changes: +LIDOCAINE 2% 100MG/5ML SDV (FOR ANES.) As Ordered ONE; +NS 1,000 ML IV ONE; +propofoL 200 MG/20 ML VIAL As Ordered ONE
[2021-08-23] MEDS ORDERED: fentaNYL 100 MCG/2 ML INJECTION As Ordered ONE (07:59)
[2021-08-23] MEDS ORDERED: propofoL 200 MG/20 ML VIAL As Ordered ONE (09:53)
[2021-08-23 10:53] VITALS: BP 122/76
== END 2021-08-23 10:55 | disposition home or self-care (01) ==
LOC: M OPP 07:58
PROVIDERS: ATTEND Surgery
DX: D50.9 Iron deficiency anemia, unspecified (principal); D17.79 Benign lipomatous neoplasm of other sites; K44.9 Diaphragmatic hernia without obstruction or gangrene; E78.5 Hyperlipidemia, unspecified; G47.30 Sleep apnea, unspecified; E11.9 Type 2 diabetes mellitus without complications; Z79.84 Long term (current) use of oral hypoglycemic drugs; Z79.899 Other long term (current) drug therapy
CPT/HCPCS: 43235; 45385; 88305; J3010

== ENCOUNTER → 2021-09-03 | Outpatient (CLI) | payer BC, MEDICAID ==
[~2021-09-03] MED LIST changes: -LIDOCAINE 2% 100MG/5ML SDV (FOR ANES.) As Ordered ONE; -NS 1,000 ML IV ONE; -propofoL 200 MG/20 ML VIAL As Ordered ONE
== END ==
LOC: M LABSMTC 10:16
PROVIDERS: ATTEND Anesthesiology
DX: Z20.828 Contact with and (suspected) exposure to other viral communicable diseases (principal); Z11.59 Encounter for screening for other viral diseases

== ENCOUNTER 2021-09-06 08:04 | Day surgery (SDC) | payer BC, MEDICAID ==
[~2021-09-06] VITALS: Ht 162.6 cm; Wt 116.0 kg
[~2021-09-06 08:04] MED LIST changes: +LIDOCAINE W/EPINEPHRINE 1% 20ML VIAL XX ONE; +SODIUM BICARBONATE 8.4% INJ 50MEQ 50 ML VIAL XX ONE
[2021-09-06] MEDS ORDERED: BACITRACIN OINTMENT 30GM TUBE As Ordered ONE (09:58)
[2021-09-06 10:30] VITALS: BP 181/82
[2021-09-06] MEDS ORDERED: TRAM50TA2 PO (10:45)
== END 2021-09-06 10:51 | disposition home or self-care (01) ==
LOC: M SDC 08:04
PROVIDERS: ATTEND Orthopaedic Surgery Hand Surgery
DX: M65.311 Trigger thumb, right thumb (principal); E11.9 Type 2 diabetes mellitus without complications; E78.5 Hyperlipidemia, unspecified; Z79.84 Long term (current) use of oral hypoglycemic drugs; Z79.899 Other long term (current) drug therapy

== ENCOUNTER 2021-10-13 16:52 | Emergency (ER) | payer BC, MEDICAID ==
[~2021-10-13] VITALS: Ht 162.6 cm; Wt 113.4 kg
[~2021-10-13 16:52] MED LIST changes: -LIDOCAINE W/EPINEPHRINE 1% 20ML VIAL XX ONE; -SODIUM BICARBONATE 8.4% INJ 50MEQ 50 ML VIAL XX ONE
[2021-10-13] MEDS ORDERED: dexameTHASONE 4 MG/ML 1ML VIAL (J1100 PER 1MG) IV ONE (19:00)
[2021-10-13] MEDS ORDERED: BENZONATATE 100MG CAPSULE PO ONE (19:00)
[2021-10-13] MEDS ORDERED: ISOVUE-370 76% 100ML VIAL As Ordered ONE (19:06)
[2021-10-13] MEDS: COMBIVENT RESPIMAT 100-20MCG INHALER 4GM INH SCH ×3 (19:20→19:40)
[2021-10-13 19:47] LABS: VENOUS HCO3 25.2 MEQ/L (23.0-27.0); VENOUS O2 SATURATION 78.6 % (60.0-80.0); VENOUS PARTIAL PRESSURE CO2 42.8 mmHg (38.0-50.0); VENOUS PARTIAL PRESSURE O2 44.2 mmHg (30.0-50.0); VENOUS PH 7.387 UNITS (7.330-7.430); VENOUS STANDARD HCO3 24.1 MEQ/L; VENOUS TOTAL CO2 26.5 MEQ/L (24.0-28.0)
[2021-10-13 19:50] LABS: BASO % 0.3 % (0.0-1.0); EOS # 0.1 10^3/uL (0.0-0.5); EOS % 1.3 % (0.0-3.0); HEMATOCRIT 39.4 % (36.0-47.0); LYMPH # 1.4 10^3/uL (1.5-5.0); LYMPH % 20.8 % (24.0-44.0); MEAN CORPUSCULAR HEMOGLOBIN 22.9 pg (27.0-33.0); MEAN CORPUSCULAR HGB CONC 30.5 g/dl (32.0-36.5); MONO # 0.3 10^3/uL (0.0-0.8); MONO % 4.7 % (2.0-8.0); NEUTROPHILS # 4.9 10^3/uL (1.5-8.5); NEUTROPHILS % 72.6 % (36.0-66.0); PLATELET COUNT, AUTOMATED 298 10^3/uL (150-450); RED BLOOD COUNT 5.25 10^6/uL (4.00-5.40); WHITE BLOOD COUNT 6.8 10^3/uL (4.0-10.0)
[2021-10-13] MEDS ORDERED: BENZ200C70 PO (21:05)
[2021-10-13] MEDS ORDERED: PRED20TA PO (21:05)
[2021-10-13] MEDS ORDERED: PROAAER10 INH (21:05)
[2021-10-13] MEDS ORDERED: BEBTELOVIMAB 175MG 2ML VIAL (EUA) IV ONE (21:15)
[2021-10-13] MEDS ORDERED: ALBUTEROL 90 MCG/ACT 8GM HFA INHALER INH ONE (21:15)
[2021-10-13 22:32] VITALS: BP 138/69
== END 2021-10-13 23:43 | disposition home or self-care (01) ==
LOC: M ED 16:52
DX: U07.1 COVID-19 (principal); R06.00 Dyspnea, unspecified; R00.0 Tachycardia, unspecified; E11.9 Type 2 diabetes mellitus without complications; E78.5 Hyperlipidemia, unspecified; Z79.51 Long term (current) use of inhaled steroids; Z79.899 Other long term (current) drug therapy
CPT/HCPCS: 71045; 71275; 80047; 82803; 84484; 84702; 85025; 93005; 94640; 96374; 96375; 99284; J1100; Q9967

== ENCOUNTER → 2021-11-17 | Outpatient (CLI) | payer BC, MEDICAID ==
[~2021-11-17] MED LIST changes: +PRED20TA PO; +PROAAER10 INH
== END ==
LOC: M WHC 13:47
PROVIDERS: ATTEND Pediatrics
DX: E04.1 Nontoxic single thyroid nodule (principal)

== ENCOUNTER → 2021-12-20 | Outpatient (REF) | payer BC, MEDICAID | LOC: M PLALAB 12:13 | PROVIDERS: ATTEND Nurse Practitioner Family | DX: C55 Malignant neoplasm of uterus, part unspecified (principal) | CPT/HCPCS: 87624; G0123 ==

== ENCOUNTER → 2021-12-25 | Outpatient (REF) | payer BC, MEDICAID ==
[2021-12-25 17:48] LABS: C REACTIVE PROTEIN QUANTITATIV 2.24 MG/DL (0.00-0.30); MAGNESIUM LEVEL 2.2 MG/DL (1.8-2.4)
[2021-12-25 18:23] LABS: TOTAL 25(OH) VITAMIN D 12.9 NG/ML (30.0-100.0)
== END ==
LOC: M SFHCRHEU 15:48
PROVIDERS: ATTEND Internal Medicine
DX: R79.82 Elevated C-reactive protein (CRP) (principal); R70.0 Elevated erythrocyte sedimentation rate; R53.82 Chronic fatigue, unspecified

== ENCOUNTER → 2022-02-13 | Outpatient (CLI) | payer BC, MEDICAID ==
[~2022-02-13] MED LIST changes: +FERR325T81 PO; +LIDOCAINE 1% MDV 20ML VIAL As Ordered ONE; +NYST-13 EXT; +VITA500045 PO
[2022-02-13 10:10] VITALS: BP 169/84
== END ==
LOC: M IRPRO 08:54
PROVIDERS: ATTEND Otolaryngology
DX: E04.1 Nontoxic single thyroid nodule (principal)

== ENCOUNTER → 2022-03-19 | Outpatient (CLI) | payer OTHER, BC, MEDICAID ==
[~2022-03-19] MED LIST changes: -LIDOCAINE 1% MDV 20ML VIAL As Ordered ONE
[2022-03-19 07:24] LABS: PLATELET COUNT, AUTOMATED 247 10^3/uL (150-450)
[2022-03-19 07:58] LABS: INR 0.93; PROTHROMBIN TIME 12.7 SECONDS (12.5-14.5)
[2022-03-19 07:59] LABS: PARTIAL THROMBOPLASTIN TIME 22.8 SECONDS (24.8-34.2)
== END ==
LOC: M LAB 06:38
PROVIDERS: ATTEND Physician Assistant Surgical
DX: M43.16 Spondylolisthesis, lumbar region (principal)

== ENCOUNTER → 2022-03-30 | Outpatient (REF) | payer BC, MEDICAID, OTHER ==
[~2022-03-30] MED LIST changes: +ERGO500029; +JARD1TAB3 PO; +SEMA14TA2
[2022-03-30 17:59] LABS: BASO % 0.3 % (0.0-1.0); EOS # 0.1 10^3/uL (0.0-0.5); EOS % 1.5 % (0.0-3.0); HEMATOCRIT 38.7 % (36.0-47.0); HEMOGLOBIN 11.8 g/dl (12.0-15.5); LYMPH # 1.8 10^3/uL (1.5-5.0); LYMPH % 26.9 % (24.0-44.0); MEAN CORPUSCULAR HEMOGLOBIN 23.8 pg (27.0-33.0); MEAN CORPUSCULAR HGB CONC 30.5 g/dl (32.0-36.5); MONO # 0.4 10^3/uL (0.0-0.8); MONO % 5.9 % (2.0-8.0); NEUTROPHILS # 4.4 10^3/uL (1.5-8.5); NEUTROPHILS % 65.1 % (36.0-66.0); PLATELET COUNT, AUTOMATED 273 10^3/uL (150-450); RED BLOOD COUNT 4.96 10^6/uL (4.00-5.40); WHITE BLOOD COUNT 6.8 10^3/uL (4.0-10.0)
[2022-03-30 18:21] LABS: BLOOD UREA NITROGEN 13 MG/DL (9-23); CALCIUM LEVEL 9.1 MG/DL (8.5-10.1); CARBON DIOXIDE LEVEL 27 MMOL/L (20-31); CHLORIDE LEVEL 100 MMOL/L (98-107); CREATININE FOR GFR 0.45 MG/DL (0.55-1.30); GLOMERULAR FILTRATION RATE > 60.0 (>58); GLUCOSE, FASTING 262 MG/DL (60-100); POTASSIUM SERUM 4.1 MMOL/L (3.5-5.1); SODIUM LEVEL 135 MMOL/L (136-145)
== END ==
LOC: M LAB REF 16:26
PROVIDERS: ATTEND Pediatrics
DX: Z01.818 Encounter for other preprocedural examination (principal)

== ENCOUNTER → 2022-04-01 | Outpatient (CLI) | payer BC, MEDICAID ==
[~2022-04-01] MED LIST changes: +AMOX500C PO; +BACI50OI TOP; +CALC1CAP31 PO; +CALC200T15 PO; +GOOD200C PO; +LEVO175C PO; +LEVO175T2 PO; +MAGN400T2 PO; +OXYC1TAB23 PO; +ROCA0.25 PO; +TRAD5TAB PO; +VITA100093 PO
== END ==
LOC: M LABSMTC 09:50
PROVIDERS: ATTEND Anesthesiology
DX: Z01.818 Encounter for other preprocedural examination (principal)

== ENCOUNTER 2022-04-05 09:39 | Inpatient (IN) | payer BC, MEDICAID ==
[~2022-04-05] VITALS: Ht 162.6 cm; Wt 113.3 kg
[~2022-04-05 09:39] MED LIST changes: -AMOX500C PO; -BACI50OI TOP; -CALC1CAP31 PO; -CALC200T15 PO; -GOOD200C PO; -LEVO175C PO; -LEVO175T2 PO; -MAGN400T2 PO; -OXYC1TAB23 PO; -ROCA0.25 PO; -TRAD5TAB PO; -VITA100093 PO
[2022-04-05] MEDS ORDERED: LR 1,000 ML IV SCH (10:20)
[2022-04-05] MEDS ORDERED: INSULIN LISPRO (NovoLOG) PER UNIT SC PRN ×2 (10:20→16:05)
[2022-04-05] MEDS ORDERED: propofoL 200 MG/20 ML VIAL As Ordered ONE (10:46)
[2022-04-05] MEDS ORDERED: ROCURONIUM BROMIDE 50MG/5ML VIAL As Ordered ONE (10:46)
[2022-04-05] MEDS ORDERED: LIDOCAINE 2% 100MG/5ML SDV (FOR ANES.) As Ordered ONE (10:46)
[2022-04-05] MEDS ORDERED: fentaNYL 250 MCG/5 ML INJECTION As Ordered ONE (10:46)
[2022-04-05] MEDS ORDERED: SUCCINYLCHOLINE 100MG/5ML SYRINGE As Ordered ONE (10:46)
[2022-04-05] MEDS ORDERED: LIDOCAINE W/EPINEPHRINE 1% 20ML VIAL As Ordered ONE (10:47)
[2022-04-05] MEDS ORDERED: MIDAZOLAM INJ 2MG/2ML VIAL As Ordered ONE (10:47)
[2022-04-05] MEDS ORDERED: LACRILUBE (AKWA TEARS) OPHTH OINT 3.5GM As Ordered ONE (12:08)
[2022-04-05] MEDS ORDERED: HYDROmorphone HCL 2MG/ML 1ML VIAL As Ordered ONE (12:32)
[2022-04-05 12:42] LABS: CALCIUM LEVEL 8.4 MG/DL (8.5-10.1)
[2022-04-05 12:43] LABS: PTH INTACT 73.5 PG/ML (18.5-88.0)
[2022-04-05] MEDS ORDERED: LABETALOL 100MG/20ML VIAL As Ordered ONE (12:54)
[2022-04-05] MEDS ORDERED: METOCLOPRAMIDE INJ 10MG/2ML VIAL As Ordered ONE (15:20)
[2022-04-05] MEDS ORDERED: ACETAMINOPHEN 1000MG 100ML IV BAG As Ordered ONE (15:20)
[2022-04-05] MEDS ORDERED: ONDANSETRON 4MG 2ML VIAL As Ordered ONE (15:20)
[2022-04-05] MEDS ORDERED: KETOROLAC 60MG 2ML VIAL As Ordered ONE (15:20)
[2022-04-05] MEDS ORDERED: ONDANSETRON 4MG 2ML VIAL IV PRN ×2 (15:50→16:40)
[2022-04-05] MEDS ORDERED: fentaNYL 100 MCG/2 ML INJECTION IV PRN (15:50)
[2022-04-05] MEDS ORDERED: oxyCODONE 5MG TAB PO PRN (15:50)
[2022-04-05] MEDS ORDERED: INSULIN LISPRO (NovoLOG) PER UNIT SC ONE ×2 (16:05→17:20)
[2022-04-05] MEDS ORDERED: ANEXSIA, NORCO 7.5MG/325MG TABLET(HYDROCODONE/APAP) PO PRN (16:45)
[2022-04-05 17:00] LABS: HEMATOCRIT 35.2 % (36.0-47.0); HEMOGLOBIN 10.7 g/dl (12.0-15.5); MEAN CORPUSCULAR HEMOGLOBIN 23.5 pg (27.0-33.0); MEAN CORPUSCULAR HGB CONC 30.4 g/dl (32.0-36.5); MEAN CORPUSCULAR VOLUME 77.4 fl (80.0-96.0); PLATELET COUNT, AUTOMATED 234 10^3/uL (150-450); RED BLOOD COUNT 4.55 10^6/uL (4.00-5.40)
[2022-04-05] MEDS ORDERED: GLUCOSE 4GM CHEW TABLET PO PRN (17:20)
[2022-04-05] MEDS ORDERED: GLUCAGON INJ 1MG VIAL SC PRN (17:20)
[2022-04-05] MEDS ORDERED: DEXTROSE 50% 50ML SYRINGE IV PRN (17:20)
[2022-04-05 17:27] LABS: MAGNESIUM LEVEL 1.4 MG/DL (1.8-2.4)
[2022-04-05 17:28] LABS: PHOSPHORUS LEVEL 4.8 MG/DL (2.5-4.9)
[2022-04-05 17:28] LABS: BLOOD UREA NITROGEN 16 MG/DL (9-23); CARBON DIOXIDE LEVEL 25 MMOL/L (20-31); CHLORIDE LEVEL 104 MMOL/L (98-107); CREATININE FOR GFR 0.45 MG/DL (0.55-1.30); GLOMERULAR FILTRATION RATE > 60.0 (>58); GLUCOSE, FASTING 356 MG/DL (60-100); SODIUM LEVEL 140 MMOL/L (136-145)
[2022-04-05 17:30] LABS: PTH INTACT 27.3 PG/ML (18.5-88.0)
[2022-04-05] MEDS ORDERED: LEVEMIR (INSULIN DETEMIR) 1 UNITS/0.01ML SC STA (18:15)
[2022-04-05 18:50] VITALS: BP 130/73
[2022-04-05 19:03] LABS: ALBUMIN 3.2 G/DL (3.2-5.2); ALKALINE PHOSPHATASE 157 U/L (46-116); ALT/SGPT 32 U/L (7.0-40); AST/SGOT 21 U/L (<34); BILIRUBIN,DIRECT 0.1 MG/DL (<0.4); BILIRUBIN,TOTAL 0.3 MG/DL (0.3-1.2); TOTAL PROTEIN 5.8 G/DL (5.7-8.2)
[2022-04-05] MEDS: LR 1,000 ML IV SCH (19:10)
[2022-04-05] MEDS: INSULIN LISPRO (NovoLOG) PER UNIT SC SCH ×2 (19:11→21:00)
[2022-04-05] MEDS: MAG SULF 1GM/100ML (MAG RUN) 1 GM in IV 1 EA IV SCH ×2 (19:13→20:58)
[2022-04-05 19:20] VITALS: BP 141/80
[2022-04-05] MEDS: LEVOTHYROXINE 125MCG TABLET (0.125MG) PO SCH (20:13)
[2022-04-05] MEDS: CALCITRIOL 0.25 MCG CAP (S0169) PO SCH (20:14)
[2022-04-05] MEDS: CALCIUM CARBONATE 500 MG CHEW U/D PO SCH (20:14)
[2022-04-05 20:15] VITALS: BP 117/71
[2022-04-05] MEDS ORDERED: LEVEMIR (INSULIN DETEMIR) 1 UNITS/0.01ML SC SCH (21:00)
[2022-04-05] MEDS: ANEXSIA, NORCO 7.5MG/325MG TABLET(HYDROCODONE/APAP) PO PRN (21:03)
[2022-04-05 21:15] VITALS: BP 119/65
[2022-04-05 21:30] LABS: MAGNESIUM LEVEL 1.6 MG/DL (1.8-2.4)
[2022-04-05 21:32] LABS: ALBUMIN 3.1 G/DL (3.2-5.2); BLOOD UREA NITROGEN 13 MG/DL (9-23); CALCIUM LEVEL 7.7 MG/DL (8.5-10.1); CARBON DIOXIDE LEVEL 25 MMOL/L (20-31); CHLORIDE LEVEL 104 MMOL/L (98-107); CREATININE FOR GFR 0.41 MG/DL (0.55-1.30); GLOMERULAR FILTRATION RATE > 60.0 (>58); GLUCOSE, FASTING 257 MG/DL (60-100); POTASSIUM SERUM 3.9 MMOL/L (3.5-5.1); SODIUM LEVEL 139 MMOL/L (136-145)
[2022-04-05] MEDS ORDERED: LEVEMIR (INSULIN DETEMIR) 1 UNITS/0.01ML SC ONE (22:00)
[2022-04-05 22:15] VITALS: BP 106/56
[2022-04-05 23:25] VITALS: BP 101/53
[2022-04-06] VITALS (8 sets, daily range): BP systolic 104–141; BP diastolic 68–88
[2022-04-06 03:37] LABS: BLOOD UREA NITROGEN 9 MG/DL (9-23); CALCIUM LEVEL 7.4 MG/DL (8.5-10.1); CARBON DIOXIDE LEVEL 27 MMOL/L (20-31); CHLORIDE LEVEL 104 MMOL/L (98-107); GLOMERULAR FILTRATION RATE > 60.0 (>58); GLUCOSE, FASTING 195 MG/DL (60-100); POTASSIUM SERUM 3.6 MMOL/L (3.5-5.1); SODIUM LEVEL 137 MMOL/L (136-145)
[2022-04-06] MEDS: ANEXSIA, NORCO 7.5MG/325MG TABLET(HYDROCODONE/APAP) PO PRN ×3 (03:45→20:25)
[2022-04-06] MEDS: LR 1,000 ML IV SCH ×2 (03:46→13:50)
[2022-04-06] MEDS: LEVOTHYROXINE 125MCG TABLET (0.125MG) PO SCH (05:22)
[2022-04-06 06:20] LABS: HEMATOCRIT 34.5 % (36.0-47.0); HEMOGLOBIN 10.4 g/dl (12.0-15.5); MEAN CORPUSCULAR HEMOGLOBIN 23.7 pg (27.0-33.0); MEAN CORPUSCULAR HGB CONC 30.1 g/dl (32.0-36.5); MEAN CORPUSCULAR VOLUME 78.6 fl (80.0-96.0); PLATELET COUNT, AUTOMATED 221 10^3/uL (150-450); RED BLOOD COUNT 4.39 10^6/uL (4.00-5.40); WHITE BLOOD COUNT 6.8 10^3/uL (4.0-10.0)
[2022-04-06 06:54] LABS: MAGNESIUM LEVEL 1.7 MG/DL (1.8-2.4)
[2022-04-06 06:55] LABS: CALCIUM LEVEL 7.4 MG/DL (8.5-10.1); PHOSPHORUS LEVEL 4.5 MG/DL (2.5-4.9)
[2022-04-06 08:14] LABS: ALBUMIN 2.9 G/DL (3.2-5.2); BLOOD UREA NITROGEN 9 MG/DL (9-23); CARBON DIOXIDE LEVEL 25 MMOL/L (20-31); CHLORIDE LEVEL 105 MMOL/L (98-107); CREATININE FOR GFR 0.53 MG/DL (0.55-1.30); GLOMERULAR FILTRATION RATE > 60.0 (>58); GLUCOSE, FASTING 207 MG/DL (60-100); POTASSIUM SERUM 3.9 MMOL/L (3.5-5.1); SODIUM LEVEL 140 MMOL/L (136-145)
[2022-04-06] MEDS: CALCITRIOL 0.25 MCG CAP (S0169) PO SCH ×2 (09:04→20:24)
[2022-04-06] MEDS: CALCIUM CARBONATE 500 MG CHEW U/D PO SCH ×4 (09:04→20:24)
[2022-04-06] MEDS: MAG SULF 1GM/100ML (MAG RUN) 1 GM in IV 1 EA IV SCH ×2 (09:08→10:17)
[2022-04-06] MEDS: INSULIN LISPRO (NovoLOG) PER UNIT SC SCH ×4 (09:09→20:26)
[2022-04-06 09:50] LABS: BLOOD UREA NITROGEN 9 MG/DL (9-23); CALCIUM LEVEL 7.2 MG/DL (8.5-10.1); CARBON DIOXIDE LEVEL 27 MMOL/L (20-31); CHLORIDE LEVEL 104 MMOL/L (98-107); CREATININE FOR GFR 0.45 MG/DL (0.55-1.30); GLOMERULAR FILTRATION RATE > 60.0 (>58); GLUCOSE, FASTING 217 MG/DL (60-100); POTASSIUM SERUM 3.5 MMOL/L (3.5-5.1); SODIUM LEVEL 138 MMOL/L (136-145)
[2022-04-06] MEDS ORDERED: EXCEDRIN MIGRAINE TABLET PO ONE (10:00)
[2022-04-06 11:27] LABS: ALBUMIN 2.7 G/DL (3.2-5.2)
[2022-04-06] MEDS: BACITRACIN OINTMENT 30GM TUBE TOP SCH ×2 (11:45→20:29)
[2022-04-06] MEDS: HEPARIN SOD (PORCINE) 5000UNITS/ML 1ML VIAL/SYRINGE SQ SCH ×2 (13:50→20:25)
[2022-04-06 16:01] LABS: BLOOD UREA NITROGEN 8 MG/DL (9-23); CALCIUM LEVEL 7.3 MG/DL (8.5-10.1); CARBON DIOXIDE LEVEL 27 MMOL/L (20-31); CHLORIDE LEVEL 106 MMOL/L (98-107); CREATININE FOR GFR 0.44 MG/DL (0.55-1.30); GLOMERULAR FILTRATION RATE > 60.0 (>58); GLUCOSE, FASTING 294 MG/DL (60-100); POTASSIUM SERUM 3.3 MMOL/L (3.5-5.1); SODIUM LEVEL 139 MMOL/L (136-145)
[2022-04-06] MEDS ORDERED: POTASSIUM CHLORIDE 10MEQ SR TABLET PO ONE (16:40)
[2022-04-06] MEDS ORDERED: POTASSIUM CHLORIDE 10% LIQ 20MEQ/15ML UDC PO ONE (17:10)
[2022-04-06] MEDS: MAGNESIUM OXIDE 400MG TAB (MAG-OX) PO SCH (20:24)
[2022-04-06] MEDS ORDERED: LEVEMIR (INSULIN DETEMIR) 1 UNITS/0.01ML SC SCH (21:00)
[2022-04-06 21:44] LABS: BLOOD UREA NITROGEN 9 MG/DL (9-23); CALCIUM LEVEL 7.5 MG/DL (8.5-10.1); CARBON DIOXIDE LEVEL 26 MMOL/L (20-31); CHLORIDE LEVEL 106 MMOL/L (98-107); GLOMERULAR FILTRATION RATE > 60.0 (>58); GLUCOSE, FASTING 237 MG/DL (60-100); POTASSIUM SERUM 3.8 MMOL/L (3.5-5.1); SODIUM LEVEL 141 MMOL/L (136-145)
[2022-04-07] MEDS: ANEXSIA, NORCO 7.5MG/325MG TABLET(HYDROCODONE/APAP) PO PRN ×3 (01:26→09:49)
[2022-04-07 02:00] VITALS: BP 142/88
[2022-04-07] MEDS: HEPARIN SOD (PORCINE) 5000UNITS/ML 1ML VIAL/SYRINGE SQ SCH ×2 (05:32→14:31)
[2022-04-07 06:00] VITALS: BP 140/89
[2022-04-07] MEDS ORDERED: LEVOTHYROXINE 125MCG TABLET (0.125MG) PO SCH (06:00)
[2022-04-07] MEDS ORDERED: LEVOTHYROXINE 50MCG TABLET (0.05MG) PO SCH (06:00)
[2022-04-07 07:12] LABS: BLOOD UREA NITROGEN 8 MG/DL (9-23); CALCIUM LEVEL 7.4 MG/DL (8.5-10.1); CARBON DIOXIDE LEVEL 27 MMOL/L (20-31); CHLORIDE LEVEL 106 MMOL/L (98-107); CREATININE FOR GFR 0.45 MG/DL (0.55-1.30); GLOMERULAR FILTRATION RATE > 60.0 (>58); GLUCOSE, FASTING 187 MG/DL (60-100); MAGNESIUM LEVEL 1.7 MG/DL (1.8-2.4); PHOSPHORUS LEVEL 4.1 MG/DL (2.5-4.9); POTASSIUM SERUM 3.9 MMOL/L (3.5-5.1); SODIUM LEVEL 141 MMOL/L (136-145)
[2022-04-07 08:00] VITALS: BP 142/79
[2022-04-07 08:00] LABS: ALBUMIN 2.9 G/DL (3.2-5.2)
[2022-04-07] MEDS: CALCITRIOL 0.25 MCG CAP (S0169) PO SCH (09:34)
[2022-04-07] MEDS: MAGNESIUM OXIDE 400MG TAB (MAG-OX) PO SCH (09:34)
[2022-04-07] MEDS: BACITRACIN OINTMENT 30GM TUBE TOP SCH (09:35)
[2022-04-07] MEDS: INSULIN LISPRO (NovoLOG) PER UNIT SC SCH ×3 (09:36→16:48)
[2022-04-07] MEDS: CALCIUM CARBONATE 500 MG CHEW U/D PO SCH ×3 (09:47→16:48)
[2022-04-07 10:00] VITALS: BP 144/79
[2022-04-07] MEDS ORDERED: MORPHINE 2 MG/ML 1ML VIAL IV ONE (12:00)
[2022-04-07] MEDS ORDERED: MAG SULF 1GM/100ML (MAG RUN) 1 GM in IV 1 EA IV ONE (12:00)
[2022-04-07] MEDS ORDERED: TRAD5TAB PO (12:04)
[2022-04-07] MEDS ORDERED: OXYC1TAB23 PO (12:07)
[2022-04-07] MEDS ORDERED: CALC200T15 PO (12:12)
[2022-04-07] MEDS ORDERED: BACI50OI TOP (12:12)
[2022-04-07] MEDS ORDERED: MAGN400T2 PO (12:12)
[2022-04-07] MEDS ORDERED: LEVO175C PO (12:12)
[2022-04-07] MEDS ORDERED: CALC1CAP31 PO (12:12)
[2022-04-07 13:50] LABS: HEMOGLOBIN A1c 11.5 % (4.0-6.0)
[2022-04-07 14:00] VITALS: BP 140/70
[2022-04-07 14:03] LABS: ALBUMIN 2.8 G/DL (3.2-5.2); BLOOD UREA NITROGEN 8 MG/DL (9-23); CALCIUM LEVEL 7.4 MG/DL (8.5-10.1); CARBON DIOXIDE LEVEL 27 MMOL/L (20-31); CHLORIDE LEVEL 106 MMOL/L (98-107); CREATININE FOR GFR 0.44 MG/DL (0.55-1.30); GLOMERULAR FILTRATION RATE > 60.0 (>58); GLUCOSE, FASTING 267 MG/DL (60-100); MAGNESIUM LEVEL 1.8 MG/DL (1.8-2.4); POTASSIUM SERUM 3.7 MMOL/L (3.5-5.1); SODIUM LEVEL 140 MMOL/L (136-145)
[2022-04-07] MEDS ORDERED: AMOX500C PO (14:47)
== END 2022-04-07 17:30 | disposition home or self-care (01) | DRG 404 ==
LOC: M SDC 09:39 → M MSPAV 16:27
PROVIDERS: ADMIT Internal Medicine; ATTEND Internal Medicine
PROC: 0GTK0ZZ Resection of Thyroid Gland, Open Approach (ICD-10-PCS; principal; 2022-04-05 11:30)
DX: C73 Malignant neoplasm of thyroid gland (principal); I10 Essential (primary) hypertension; E66.2 Morbid (severe) obesity with alveolar hypoventilation; Z68.41 Body mass index [BMI] 40.0-44.9, adult; E11.9 Type 2 diabetes mellitus without complications; D50.9 Iron deficiency anemia, unspecified; E83.42 Hypomagnesemia; J98.11 Atelectasis; E83.51 Hypocalcemia; E55.9 Vitamin D deficiency, unspecified; M85.88 Other specified disorders of bone density and structure, other site; M54.16 Radiculopathy, lumbar region; Z90.79 Acquired absence of other genital organ(s); Z79.84 Long term (current) use of oral hypoglycemic drugs; E03.9 Hypothyroidism, unspecified

== ENCOUNTER → 2022-04-09 | Outpatient (CLI) | payer BC, MEDICAID ==
[~2022-04-09] MED LIST changes: +AMOX500C PO; +BACI50OI TOP; +CALC1CAP31 PO; +CALC200T15 PO; +LEVO175C PO; +MAGN400T2 PO; +OXYC1TAB23 PO; +TRAD5TAB PO
[2022-04-09 18:00] LABS: CALCIUM LEVEL 8.8 MG/DL (8.5-10.1)
[2022-04-09 18:03] LABS: THYROID STIMULATING HORMONE 2.375 uIU/ML (0.55-4.78)
== END ==
LOC: M LAB 14:26
PROVIDERS: ATTEND Otolaryngology
DX: C73 Malignant neoplasm of thyroid gland (principal)

== ENCOUNTER → 2022-04-16 | Outpatient (CLI) | payer BC, MEDICAID ==
[2022-04-16 13:28] LABS: CALCIUM LEVEL 9.3 MG/DL (8.5-10.1)
[2022-04-16 13:33] LABS: THYROID STIMULATING HORMONE 5.477 uIU/ML (0.55-4.78)
== END ==
LOC: M LAB 12:01
PROVIDERS: ATTEND Otolaryngology
DX: C73 Malignant neoplasm of thyroid gland (principal)

== ENCOUNTER → 2022-04-16 | Outpatient (CLI) | payer BC, MEDICAID | LOC: M RAD 12:05 | PROVIDERS: ATTEND Pediatrics | DX: J98.11 Atelectasis (principal) ==

== ENCOUNTER 2022-04-22 22:46 | Inpatient (IN) | payer BC, MEDICAID ==
[~2022-04-22] VITALS: Ht 162.6 cm; Wt 121.1 kg
[2022-04-22] MEDS ORDERED: GOOD200C PO (22:52)
[2022-04-22] MEDS ORDERED: PIPERACILLIN/TAZOBACTAM SOD 4.5 GM in D5W MINI-BAG PLUS 50 ML IV ONE (23:25)
[2022-04-22] MEDS ORDERED: NS IV ONE (23:30)
[2022-04-22] MEDS ORDERED: ISOVUE-370 76% 100ML VIAL As Ordered ONE (23:34)
[2022-04-22 23:51] LABS: BASO % 0.1 % (0.0-1.0); HEMATOCRIT 36.9 % (36.0-47.0); HEMOGLOBIN 11.3 g/dl (12.0-15.5); LYMPH # 0.8 10^3/uL (1.5-5.0); LYMPH % 7.1 % (24.0-44.0); MEAN CORPUSCULAR HEMOGLOBIN 24.4 pg (27.0-33.0); MEAN CORPUSCULAR HGB CONC 30.6 g/dl (32.0-36.5); MEAN CORPUSCULAR VOLUME 79.7 fl (80.0-96.0); MONO # 0.7 10^3/uL (0.0-0.8); MONO % 6.9 % (2.0-8.0); NEUTROPHILS # 9.2 10^3/uL (1.5-8.5); NEUTROPHILS % 85.2 % (36.0-66.0); PLATELET COUNT, AUTOMATED 313 10^3/uL (150-450); RED BLOOD COUNT 4.63 10^6/uL (4.00-5.40); WHITE BLOOD COUNT 10.8 10^3/uL (4.0-10.0)
[2022-04-22] MEDS ORDERED: LIDOCAINE 1% MDV 20ML VIAL SC ONE (23:55)
[2022-04-23 00:01] LABS: ERYTHROCYTE SEDIMENTATION RATE 122 mm/hr (0-20)
[2022-04-23 00:20] LABS: RSV AMPLIFICATION NEGATIVE (NEGATIVE)
[2022-04-23] MEDS ORDERED: CLINDAMYCIN 900 MG in IV 1 EA IV ONE (00:50)
[2022-04-23] MEDS ORDERED: ROCA0.25 PO (00:53)
[2022-04-23] MEDS ORDERED: LEVO175T2 PO (00:53)
[2022-04-23] MEDS ORDERED: TRAD5TAB PO (00:53)
[2022-04-23] MEDS ORDERED: VITA100093 PO (00:57)
[2022-04-23] MEDS ORDERED: HOME MED LIST COMPLETE! XX SCH (01:00)
[2022-04-23] MEDS ORDERED: NORCO, ANEXSIA 5/325MG TABLET (HYDROcodone/ACETAMINOPHEN) PO PRN (01:55)
[2022-04-23] MEDS ORDERED: GLUCOSE 4GM CHEW TABLET PO PRN ×2 (02:25→14:45)
[2022-04-23] MEDS ORDERED: DEXTROSE 50% 50ML SYRINGE IV PRN ×2 (02:25→14:45)
[2022-04-23] MEDS ORDERED: GLUCAGON INJ 1MG VIAL SC PRN ×2 (02:25→14:45)
[2022-04-23] MEDS ORDERED: SENOKOT S TAB PO PRN (02:45)
[2022-04-23] MEDS ORDERED: POTASSIUM CHLORIDE 10MEQ SR TABLET PO ONE (03:00)
[2022-04-23] MEDS: D5W/0.45% SODIUM CHLORIDE 1,000 ML IV SCH ×2 (03:24→20:43)
[2022-04-23 03:35] VITALS: BP 129/68
[2022-04-23] MEDS: LEVOTHYROXINE 150MCG TABLET (0.15MG) PO SCH (04:18)
[2022-04-23] MEDS: LEVOTHYROXINE 25MCG TABLET (0.025MG) PO SCH (04:18)
[2022-04-23] MEDS: HYDROMORPHONE HCL 0.5 MG/ 0.5 ML SYRINGE IV PRN ×4 (04:19→22:53)
[2022-04-23] MEDS ORDERED: POTASSIUM CHLORIDE 10% LIQ 20MEQ/15ML UDC PO ONE (05:00)
[2022-04-23] MEDS: PIPERACILLIN/TAZOBACTAM SOD 4.5 GM in D5W MINI-BAG PLUS 50 ML IV SCH ×3 (05:15→17:14)
[2022-04-23 06:00] VITALS: BP 127/68
[2022-04-23] MEDS: INSULIN LISPRO (NovoLOG) PER UNIT SC SCH ×2 (06:00→12:21)
[2022-04-23 06:49] LABS: BASO % 0.1 % (0.0-1.0); EOS % 0.1 % (0.0-3.0); HEMATOCRIT 35.9 % (36.0-47.0); HEMOGLOBIN 10.6 g/dl (12.0-15.5); LYMPH # 0.7 10^3/uL (1.5-5.0); LYMPH % 7.3 % (24.0-44.0); MEAN CORPUSCULAR HEMOGLOBIN 24.2 pg (27.0-33.0); MEAN CORPUSCULAR HGB CONC 29.5 g/dl (32.0-36.5); MONO # 0.6 10^3/uL (0.0-0.8); MONO % 7.1 % (2.0-8.0); NEUTROPHILS # 7.6 10^3/uL (1.5-8.5); NEUTROPHILS % 85.1 % (36.0-66.0); PLATELET COUNT, AUTOMATED 293 10^3/uL (150-450); RED BLOOD COUNT 4.38 10^6/uL (4.00-5.40); WHITE BLOOD COUNT 8.9 10^3/uL (4.0-10.0)
[2022-04-23 07:04] LABS: BLOOD UREA NITROGEN 8 MG/DL (9-23); CALCIUM LEVEL 8.3 MG/DL (8.5-10.1); CARBON DIOXIDE LEVEL 17 MMOL/L (20-31); CHLORIDE LEVEL 108 MMOL/L (98-107); CREATININE FOR GFR 0.42 MG/DL (0.55-1.30); GLOMERULAR FILTRATION RATE > 60.0 (>58); GLUCOSE, FASTING 136 MG/DL (60-100); MAGNESIUM LEVEL 1.9 MG/DL (1.8-2.4); POTASSIUM SERUM 4.2 MMOL/L (3.5-5.1); SODIUM LEVEL 139 MMOL/L (136-145)
[2022-04-23] MEDS: CLINDAMYCIN 900 MG in IV 1 EA IV SCH ×2 (09:18→18:49)
[2022-04-23] MEDS: VITAMIN D 1,000 INTERNATIONAL UNITS TABLET PO SCH (09:18)
[2022-04-23] MEDS: CALCITRIOL 0.25 MCG CAP (S0169) PO SCH ×2 (09:18→20:43)
[2022-04-23] MEDS: DOCUSATE SODIUM 100MG CAPSULE PO SCH ×2 (09:18→20:43)
[2022-04-23] MEDS: MAGNESIUM OXIDE 400MG TAB (MAG-OX) PO SCH ×2 (09:19→20:43)
[2022-04-23 14:00] VITALS: BP 126/69
[2022-04-23] MEDS ORDERED: INSULIN LISPRO (NovoLOG) PER UNIT SC SCH ×2 (17:30→21:00)
[2022-04-23] MEDS: LACTOBACILLUS ACIDOPHILUS CAP (BACID) PO SCH (18:27)
[2022-04-23] MEDS: FERROUS SULFATE 325MG TAB PO SCH (20:43)
[2022-04-23 21:00] VITALS: BP 123/72
[2022-04-24] VITALS (8 sets, daily range): BP systolic 108–134; BP diastolic 68–74
[2022-04-24] MEDS: PIPERACILLIN/TAZOBACTAM SOD 4.5 GM in D5W MINI-BAG PLUS 50 ML IV SCH ×5 (00:20→23:23)
[2022-04-24] MEDS: ACETAMINOPHEN TAB 650MG DOSE (2X325MG) PO PRN (00:44)
[2022-04-24] MEDS: CLINDAMYCIN 900 MG in IV 1 EA IV SCH ×2 (01:45→09:51)
[2022-04-24] MEDS ORDERED: FLUTICASONE PROP 0.05% NASAL SPRAY 16 GM (FLONASE) NARES PRN (01:50)
[2022-04-24] MEDS ORDERED: guaiFENesin SYRUP 200MG 10ML UDC PO PRN (01:50)
[2022-04-24] MEDS ORDERED: IBUPROFEN 400MG TAB PO ONE (02:00)
[2022-04-24] MEDS: INSULIN LISPRO (NovoLOG) PER UNIT SC SCH ×4 (05:22→20:20)
[2022-04-24] MEDS: LEVOTHYROXINE 25MCG TABLET (0.025MG) PO SCH (05:22)
[2022-04-24] MEDS: D5W/0.45% SODIUM CHLORIDE 1,000 ML IV SCH ×2 (05:22→09:51)
[2022-04-24] MEDS: LEVOTHYROXINE 150MCG TABLET (0.15MG) PO SCH (05:22)
[2022-04-24 06:32] LABS: HEMATOCRIT 31.6 % (36.0-47.0); HEMOGLOBIN 9.3 g/dl (12.0-15.5); MEAN CORPUSCULAR HEMOGLOBIN 24.2 pg (27.0-33.0); MEAN CORPUSCULAR HGB CONC 29.4 g/dl (32.0-36.5); MEAN CORPUSCULAR VOLUME 82.1 fl (80.0-96.0); PLATELET COUNT, AUTOMATED 259 10^3/uL (150-450); RED BLOOD COUNT 3.85 10^6/uL (4.00-5.40); WHITE BLOOD COUNT 6.3 10^3/uL (4.0-10.0)
[2022-04-24] MEDS: LACTOBACILLUS ACIDOPHILUS CAP (BACID) PO SCH ×2 (08:00→17:34)
[2022-04-24 08:38] LABS: ALBUMIN 2.5 G/DL (3.2-5.2); ALKALINE PHOSPHATASE 102 U/L (46-116); ALT/SGPT 17 U/L (7.0-40); AST/SGOT 15 U/L (<34); BILIRUBIN,TOTAL 0.4 MG/DL (0.3-1.2); BLOOD UREA NITROGEN 7 MG/DL (9-23); CALCIUM LEVEL 8.7 MG/DL (8.5-10.1); CARBON DIOXIDE LEVEL 22 MMOL/L (20-31); CHLORIDE LEVEL 101 MMOL/L (98-107); CREATININE FOR GFR 0.47 MG/DL (0.55-1.30); GLOMERULAR FILTRATION RATE > 60.0 (>58); GLUCOSE, FASTING 106 MG/DL (60-100); POTASSIUM SERUM 3.6 MMOL/L (3.5-5.1); SODIUM LEVEL 136 MMOL/L (136-145); TOTAL PROTEIN 5.8 G/DL (5.7-8.2)
[2022-04-24] MEDS: CALCITRIOL 0.25 MCG CAP (S0169) PO SCH ×2 (09:00→21:17)
[2022-04-24] MEDS: VITAMIN D 1,000 INTERNATIONAL UNITS TABLET PO SCH (09:00)
[2022-04-24] MEDS: DOCUSATE SODIUM 100MG CAPSULE PO SCH ×2 (09:00→21:17)
[2022-04-24] MEDS: MAGNESIUM OXIDE 400MG TAB (MAG-OX) PO SCH ×2 (09:00→21:17)
[2022-04-24] MEDS: HYDROMORPHONE HCL 0.5 MG/ 0.5 ML SYRINGE IV PRN (10:52)
[2022-04-24] MEDS ORDERED: LIDOCAINE W/EPINEPHRINE 1% 20ML VIAL As Ordered ONE (12:14)
[2022-04-24] MEDS ORDERED: propofoL 200 MG/20 ML VIAL As Ordered ONE (12:16)
[2022-04-24] MEDS ORDERED: ROCURONIUM BROMIDE 50MG/5ML VIAL As Ordered ONE (12:16)
[2022-04-24] MEDS ORDERED: LIDOCAINE 2% 100MG/5ML SDV (FOR ANES.) As Ordered ONE (12:16)
[2022-04-24] MEDS ORDERED: ONDANSETRON 4MG 2ML VIAL As Ordered ONE (12:17)
[2022-04-24] MEDS ORDERED: MIDAZOLAM INJ 2MG/2ML VIAL As Ordered ONE (12:18)
[2022-04-24] MEDS ORDERED: fentaNYL 100 MCG/2 ML INJECTION As Ordered ONE ×2 (12:18→13:12)
[2022-04-24] MEDS ORDERED: CLINDAMYCIN 600MG/50ML PREMIX BAG As Ordered ONE (12:36)
[2022-04-24] MEDS ORDERED: ACETAMINOPHEN 1000MG 100ML IV BAG As Ordered ONE (13:08)
[2022-04-24] MEDS ORDERED: SUGAMMADEX SODIUM 500 MG/5 ML VIAL (BRIDION) As Ordered ONE (13:12)
[2022-04-24] MEDS ORDERED: METOCLOPRAMIDE INJ 10MG/2ML VIAL As Ordered ONE (13:16)
[2022-04-24] MEDS ORDERED: HYDROMORPHONE HCL 0.5 MG/ 0.5 ML SYRINGE IV PRN (13:35)
[2022-04-24] MEDS ORDERED: fentaNYL 100 MCG/2 ML INJECTION IV PRN (13:35)
[2022-04-24] MEDS ORDERED: ONDANSETRON 4MG 2ML VIAL IV PRN ×2 (13:35→14:45)
[2022-04-24] MEDS ORDERED: LR 1,000 ML IV SCH (13:35)
[2022-04-24] MEDS ORDERED: oxyCODONE 5MG TAB PO PRN (13:35)
[2022-04-24] MEDS ORDERED: MORPHINE 10 MG/ML 1ML VIAL IV PRN (14:45)
[2022-04-24] MEDS ORDERED: NORCO, ANEXSIA 5/325MG TABLET (HYDROcodone/ACETAMINOPHEN) PO PRN (14:45)
[2022-04-24] MEDS ORDERED: VANCOMYCIN HCL 1,000 MG, VIAL MATE ADAPTER 1 EACH in NS 250 ML IV SCH (14:50)
[2022-04-24] MEDS ORDERED: GLUCOSE 4GM CHEW TABLET PO PRN (15:55)
[2022-04-24] MEDS ORDERED: GLUCAGON INJ 1MG VIAL SC PRN (15:55)
[2022-04-24] MEDS ORDERED: DEXTROSE 50% 50ML SYRINGE IV PRN (15:55)
[2022-04-24] MEDS ORDERED: VANCOMYCIN HCL 1,000 MG, VIAL MATE ADAPTER 1 EACH in NS 250 ML IV ONE ×2 (16:00→17:00)
[2022-04-24] MEDS: FERROUS SULFATE 325MG TAB PO SCH (21:16)
[2022-04-25] VITALS (7 sets, daily range): BP systolic 122–125; BP diastolic 70–77
[2022-04-25] MEDS ORDERED: VANCOMYCIN HCL 750 MG, VIAL MATE ADAPTER 1 EACH in D5W 250 ML IV SCH ×2 (01:00→02:00)
[2022-04-25] MEDS: LEVOTHYROXINE 25MCG TABLET (0.025MG) PO SCH (05:49)
[2022-04-25] MEDS: LEVOTHYROXINE 150MCG TABLET (0.15MG) PO SCH (05:49)
[2022-04-25] MEDS: PIPERACILLIN/TAZOBACTAM SOD 4.5 GM in D5W MINI-BAG PLUS 50 ML IV SCH ×4 (05:50→23:58)
[2022-04-25 06:24] LABS: HEMATOCRIT 32.7 % (36.0-47.0); HEMOGLOBIN 10.1 g/dl (12.0-15.5); MEAN CORPUSCULAR HEMOGLOBIN 24.3 pg (27.0-33.0); MEAN CORPUSCULAR HGB CONC 30.9 g/dl (32.0-36.5); MEAN CORPUSCULAR VOLUME 78.6 fl (80.0-96.0); PLATELET COUNT, AUTOMATED 306 10^3/uL (150-450); RED BLOOD COUNT 4.16 10^6/uL (4.00-5.40)
[2022-04-25 06:49] LABS: BLOOD UREA NITROGEN 10 MG/DL (9-23); CALCIUM LEVEL 8.6 MG/DL (8.5-10.1); CARBON DIOXIDE LEVEL 20 MMOL/L (20-31); CHLORIDE LEVEL 105 MMOL/L (98-107); CREATININE FOR GFR 0.43 MG/DL (0.55-1.30); GLOMERULAR FILTRATION RATE > 60.0 (>58); GLUCOSE, FASTING 174 MG/DL (60-100); POTASSIUM SERUM 3.5 MMOL/L (3.5-5.1); SODIUM LEVEL 137 MMOL/L (136-145)
[2022-04-25] MEDS: INSULIN LISPRO (NovoLOG) PER UNIT SC SCH ×4 (08:26→21:00)
[2022-04-25] MEDS: CALCITRIOL 0.25 MCG CAP (S0169) PO SCH (08:26)
[2022-04-25] MEDS: LACTOBACILLUS ACIDOPHILUS CAP (BACID) PO SCH ×2 (08:26→17:56)
[2022-04-25] MEDS: MAGNESIUM OXIDE 400MG TAB (MAG-OX) PO SCH ×2 (08:26→22:09)
[2022-04-25] MEDS: VITAMIN D 1,000 INTERNATIONAL UNITS TABLET PO SCH (08:26)
[2022-04-25] MEDS: DOCUSATE SODIUM 100MG CAPSULE PO SCH ×2 (08:26→22:09)
[2022-04-25 08:56] LABS: THYROID STIMULATING HORMONE 3.283 uIU/ML (0.55-4.78)
[2022-04-25] MEDS: ACETAMINOPHEN TAB 650MG DOSE (2X325MG) PO PRN (13:41)
[2022-04-25] MEDS ORDERED: LEVEMIR (INSULIN DETEMIR) 1 UNITS/0.01ML SC SCH (21:00)
[2022-04-25] MEDS: HYDROmorphone HCL 2MG/ML 1ML VIAL IV PRN (22:38)
[2022-04-26] VITALS (8 sets, daily range): BP systolic 122–126; BP diastolic 68–73
[2022-04-26] MEDS: PIPERACILLIN/TAZOBACTAM SOD 4.5 GM in D5W MINI-BAG PLUS 50 ML IV SCH ×2 (05:42→13:46)
[2022-04-26] MEDS: LEVOTHYROXINE 150MCG TABLET (0.15MG) PO SCH (05:42)
[2022-04-26] MEDS: LEVOTHYROXINE 25MCG TABLET (0.025MG) PO SCH (05:42)
[2022-04-26 06:27] LABS: HEMATOCRIT 33.8 % (36.0-47.0); HEMOGLOBIN 10.1 g/dl (12.0-15.5); MEAN CORPUSCULAR HEMOGLOBIN 24.1 pg (27.0-33.0); MEAN CORPUSCULAR HGB CONC 29.9 g/dl (32.0-36.5); MEAN CORPUSCULAR VOLUME 80.7 fl (80.0-96.0); PLATELET COUNT, AUTOMATED 332 10^3/uL (150-450); RED BLOOD COUNT 4.19 10^6/uL (4.00-5.40); WHITE BLOOD COUNT 5.5 10^3/uL (4.0-10.0)
[2022-04-26 06:57] LABS: BLOOD UREA NITROGEN 11 MG/DL (9-23); CALCIUM LEVEL 8.7 MG/DL (8.5-10.1); CARBON DIOXIDE LEVEL 27 MMOL/L (20-31); CHLORIDE LEVEL 105 MMOL/L (98-107); CREATININE FOR GFR 0.44 MG/DL (0.55-1.30); GLOMERULAR FILTRATION RATE > 60.0 (>58); GLUCOSE, FASTING 185 MG/DL (60-100); POTASSIUM SERUM 3.1 MMOL/L (3.5-5.1); SODIUM LEVEL 141 MMOL/L (136-145)
[2022-04-26] MEDS: LACTOBACILLUS ACIDOPHILUS CAP (BACID) PO SCH ×2 (08:21→17:40)
[2022-04-26] MEDS: DOCUSATE SODIUM 100MG CAPSULE PO SCH ×2 (08:21→21:02)
[2022-04-26] MEDS: VITAMIN D 1,000 INTERNATIONAL UNITS TABLET PO SCH (08:21)
[2022-04-26] MEDS: MAGNESIUM OXIDE 400MG TAB (MAG-OX) PO SCH ×2 (08:21→21:01)
[2022-04-26] MEDS: INSULIN LISPRO (NovoLOG) PER UNIT SC SCH ×4 (08:21→21:07)
[2022-04-26] MEDS: POTASSIUM CHLORIDE 10MEQ SR TABLET PO SCH ×3 (08:21→21:01)
[2022-04-26] MEDS ORDERED: LIDOCAINE 1% MDV 20ML VIAL As Ordered ONE (15:38)
[2022-04-26] MEDS ORDERED: SODIUM CHLORIDE 0.9% INJ 10 ML SYR IV PRN (17:00)
[2022-04-26] MEDS: AMPICILLIN SOD/SULBACTAM SOD 3 GM in D5W MINI-BAG PLUS 100 ML IV SCH (17:42)
[2022-04-26] MEDS ORDERED: LEVEMIR (INSULIN DETEMIR) 1 UNITS/0.01ML SC SCH (21:00)
[2022-04-26] MEDS: FERROUS SULFATE 325MG TAB PO SCH (21:02)
[2022-04-26] MEDS: HYDROmorphone HCL 2MG/ML 1ML VIAL IV PRN (21:03)
[2022-04-27] MEDS: AMPICILLIN SOD/SULBACTAM SOD 3 GM in D5W MINI-BAG PLUS 100 ML IV SCH ×5 (00:49→23:57)
[2022-04-27 05:15] VITALS: BP 128/73
[2022-04-27] MEDS: LEVOTHYROXINE 150MCG TABLET (0.15MG) PO SCH (05:42)
[2022-04-27] MEDS: SODIUM CHLORIDE 0.9% INJ 10 ML SYR IV SCH ×2 (05:42→17:51)
[2022-04-27] MEDS: LEVOTHYROXINE 25MCG TABLET (0.025MG) PO SCH (05:42)
[2022-04-27 06:21] LABS: HEMATOCRIT 33.5 % (36.0-47.0); MEAN CORPUSCULAR HGB CONC 29.9 g/dl (32.0-36.5); MEAN CORPUSCULAR VOLUME 80.5 fl (80.0-96.0); PLATELET COUNT, AUTOMATED 317 10^3/uL (150-450); RED BLOOD COUNT 4.16 10^6/uL (4.00-5.40); WHITE BLOOD COUNT 4.9 10^3/uL (4.0-10.0)
[2022-04-27 06:54] LABS: BLOOD UREA NITROGEN 8 MG/DL (9-23); CALCIUM LEVEL 8.7 MG/DL (8.5-10.1); CARBON DIOXIDE LEVEL 26 MMOL/L (20-31); CHLORIDE LEVEL 106 MMOL/L (98-107); CREATININE FOR GFR 0.34 MG/DL (0.55-1.30); GLOMERULAR FILTRATION RATE > 60.0 (>58); GLUCOSE, FASTING 230 MG/DL (60-100); POTASSIUM SERUM 3.8 MMOL/L (3.5-5.1); SODIUM LEVEL 141 MMOL/L (136-145)
[2022-04-27] MEDS: VITAMIN D 1,000 INTERNATIONAL UNITS TABLET PO SCH (09:42)
[2022-04-27] MEDS: LACTOBACILLUS ACIDOPHILUS CAP (BACID) PO SCH ×2 (09:42→17:50)
[2022-04-27] MEDS: INSULIN LISPRO (NovoLOG) PER UNIT SC SCH ×4 (09:42→21:12)
[2022-04-27] MEDS: DOCUSATE SODIUM 100MG CAPSULE PO SCH ×2 (09:43→21:00)
[2022-04-27] MEDS: MAGNESIUM OXIDE 400MG TAB (MAG-OX) PO SCH ×2 (09:43→21:11)
[2022-04-27 13:36] LABS: ERYTHROCYTE SEDIMENTATION RATE 81 mm/hr (0-20)
[2022-04-27 14:00] VITALS: BP 128/73
[2022-04-27 19:08] LABS: APPEARANCE, URINE HAZY (CLEAR); BILIRUBIN, URINE AUTO NEGATIVE (NEGATIVE); BLOOD, URINE BLOOD NEGATIVE (NEGATIVE); COLOR, URINE YELLOW (YELLOW); GLUCOSE, URINE (UA) AUTO 3+ mg/dL (NEGATIVE); KETONE, URINE AUTO NEGATIVE (NEGATIVE); LEUKOCYTE ESTERASE, URINE AUTO NEGATIVE (NEGATIVE); NITRITE, URINE AUTO NEGATIVE (NEGATIVE); PROTEIN, URINE AUTO NEGATIVE (NEGATIVE); SPECIFIC GRAVITY URINE AUTO 1.027 (1.002-1.035); UROBILINOGEN, URINE AUTO 0.2 mg/dL (0.0-2.0)
[2022-04-27 19:20] LABS: BACTERIA, URINE AUTO NEGATIVE (NEGATIVE); CALCIUM OXALATE CRYSTALS SMALL; MUCUS, URINE SMALL (NEGATIVE); RBC, URINE AUTO 1 /HPF (0-3); SQUAMOUS EPITHELIAL CELL UR AU 4 /HPF (0-6); WBC, URINE AUTO 1 /HPF (0-3)
[2022-04-27] MEDS ORDERED: FLUCONAZOLE 50MG TABLET PO ONE (21:00)
[2022-04-27] MEDS: LEVEMIR (INSULIN DETEMIR) 1 UNITS/0.01ML SC SCH (21:12)
[2022-04-27] MEDS: HYDROmorphone HCL 2MG/ML 1ML VIAL IV PRN (21:21)
[2022-04-27 22:00] VITALS: BP 133/77
[2022-04-28 05:35] LABS: HEMATOCRIT 34.3 % (36.0-47.0); MEAN CORPUSCULAR HEMOGLOBIN 23.6 pg (27.0-33.0); MEAN CORPUSCULAR HGB CONC 29.2 g/dl (32.0-36.5); MEAN CORPUSCULAR VOLUME 81.1 fl (80.0-96.0); PLATELET COUNT, AUTOMATED 308 10^3/uL (150-450); RED BLOOD COUNT 4.23 10^6/uL (4.00-5.40); WHITE BLOOD COUNT 4.9 10^3/uL (4.0-10.0)
[2022-04-28] MEDS: LEVOTHYROXINE 25MCG TABLET (0.025MG) PO SCH (05:37)
[2022-04-28] MEDS: LEVOTHYROXINE 150MCG TABLET (0.15MG) PO SCH (05:37)
[2022-04-28] MEDS: SODIUM CHLORIDE 0.9% INJ 10 ML SYR IV SCH ×2 (05:38→19:15)
[2022-04-28] MEDS: AMPICILLIN SOD/SULBACTAM SOD 3 GM in D5W MINI-BAG PLUS 100 ML IV SCH ×4 (05:38→23:05)
[2022-04-28 06:00] VITALS: BP 134/77
[2022-04-28 06:01] LABS: BLOOD UREA NITROGEN 7 MG/DL (9-23); CALCIUM LEVEL 8.6 MG/DL (8.5-10.1); CARBON DIOXIDE LEVEL 30 MMOL/L (20-31); CHLORIDE LEVEL 105 MMOL/L (98-107); CREATININE FOR GFR 0.42 MG/DL (0.55-1.30); GLOMERULAR FILTRATION RATE > 60.0 (>58); GLUCOSE, FASTING 170 MG/DL (60-100); POTASSIUM SERUM 3.9 MMOL/L (3.5-5.1); SODIUM LEVEL 143 MMOL/L (136-145)
[2022-04-28] MEDS: INSULIN LISPRO (NovoLOG) PER UNIT SC SCH ×4 (08:21→21:01)
[2022-04-28] MEDS: MAGNESIUM OXIDE 400MG TAB (MAG-OX) PO SCH ×2 (08:21→21:00)
[2022-04-28] MEDS: VITAMIN D 1,000 INTERNATIONAL UNITS TABLET PO SCH (08:21)
[2022-04-28] MEDS: DOCUSATE SODIUM 100MG CAPSULE PO SCH ×2 (08:21→21:00)
[2022-04-28] MEDS: LACTOBACILLUS ACIDOPHILUS CAP (BACID) PO SCH ×2 (08:21→17:42)
[2022-04-28] MEDS ORDERED: NYSTATIN CREAM 15GM TOP SCH (09:00)
[2022-04-28] MEDS ORDERED: INSULIN LISPRO (NovoLOG) PER UNIT SC SCH (12:00)
[2022-04-28 14:00] VITALS: BP 115/73
[2022-04-28] MEDS: KETOCONAZOLE 2% CREAM TOP SCH (17:42)
[2022-04-28 20:00] VITALS: BP 119/73
[2022-04-28] MEDS: LEVEMIR (INSULIN DETEMIR) 1 UNITS/0.01ML SC SCH (21:00)
[2022-04-28] MEDS: FERROUS SULFATE 325MG TAB PO SCH (21:00)
[2022-04-28] MEDS: HYDROmorphone HCL 2MG/ML 1ML VIAL IV PRN (23:05)
[2022-04-29 05:09] VITALS: BP 127/74
[2022-04-29] MEDS: LEVOTHYROXINE 150MCG TABLET (0.15MG) PO SCH (05:11)
[2022-04-29] MEDS: LEVOTHYROXINE 25MCG TABLET (0.025MG) PO SCH (05:11)
[2022-04-29] MEDS: SODIUM CHLORIDE 0.9% INJ 10 ML SYR IV SCH ×2 (05:12→18:36)
[2022-04-29] MEDS: AMPICILLIN SOD/SULBACTAM SOD 3 GM in D5W MINI-BAG PLUS 100 ML IV SCH ×3 (05:12→17:36)
[2022-04-29] MEDS: KETOCONAZOLE 2% CREAM TOP SCH ×2 (05:13→17:37)
[2022-04-29 05:49] LABS: HEMATOCRIT 35.8 % (36.0-47.0); HEMOGLOBIN 10.5 g/dl (12.0-15.5); MEAN CORPUSCULAR HGB CONC 29.3 g/dl (32.0-36.5); MEAN CORPUSCULAR VOLUME 81.7 fl (80.0-96.0); PLATELET COUNT, AUTOMATED 326 10^3/uL (150-450); RED BLOOD COUNT 4.38 10^6/uL (4.00-5.40); WHITE BLOOD COUNT 5.8 10^3/uL (4.0-10.0)
[2022-04-29 06:14] LABS: ERYTHROCYTE SEDIMENTATION RATE 79 mm/hr (0-20)
[2022-04-29 07:13] LABS: BLOOD UREA NITROGEN 8 MG/DL (9-23); CALCIUM LEVEL 9.2 MG/DL (8.5-10.1); CARBON DIOXIDE LEVEL 28 MMOL/L (20-31); CHLORIDE LEVEL 104 MMOL/L (98-107); CREATININE FOR GFR 0.42 MG/DL (0.55-1.30); GLOMERULAR FILTRATION RATE > 60.0 (>58); GLUCOSE, FASTING 223 MG/DL (60-100); POTASSIUM SERUM 4.2 MMOL/L (3.5-5.1); SODIUM LEVEL 140 MMOL/L (136-145)
[2022-04-29] MEDS: VITAMIN D 1,000 INTERNATIONAL UNITS TABLET PO SCH (08:28)
[2022-04-29] MEDS: LACTOBACILLUS ACIDOPHILUS CAP (BACID) PO SCH ×2 (08:28→17:36)
[2022-04-29] MEDS: MAGNESIUM OXIDE 400MG TAB (MAG-OX) PO SCH ×2 (08:28→20:41)
[2022-04-29] MEDS: DOCUSATE SODIUM 100MG CAPSULE PO SCH ×2 (08:29→20:36)
[2022-04-29] MEDS: INSULIN LISPRO (NovoLOG) PER UNIT SC SCH ×6 (08:30→20:34)
[2022-04-29] MEDS: HYDROmorphone HCL 2MG/ML 1ML VIAL IV PRN ×3 (11:11→21:03)
[2022-04-29 14:30] VITALS: BP 127/74
[2022-04-29] MEDS: RIVAROXABAN 10MG TAB (XARELTO) PO SCH (17:36)
[2022-04-29 20:00] VITALS: BP 139/81
[2022-04-29] MEDS: LEVEMIR (INSULIN DETEMIR) 1 UNITS/0.01ML SC SCH (20:41)
[2022-04-29] MEDS ORDERED: LEVEMIR (INSULIN DETEMIR) 1 UNITS/0.01ML SC SCH (21:00)
[2022-04-30] MEDS: AMPICILLIN SOD/SULBACTAM SOD 3 GM in D5W MINI-BAG PLUS 100 ML IV SCH ×5 (00:13→23:35)
[2022-04-30] MEDS: HYDROmorphone HCL 2MG/ML 1ML VIAL IV PRN ×3 (05:23→23:37)
[2022-04-30] MEDS: LEVOTHYROXINE 25MCG TABLET (0.025MG) PO SCH (05:27)
[2022-04-30] MEDS: LEVOTHYROXINE 150MCG TABLET (0.15MG) PO SCH (05:27)
[2022-04-30] MEDS: SODIUM CHLORIDE 0.9% INJ 10 ML SYR IV SCH ×2 (05:27→17:37)
[2022-04-30] MEDS: KETOCONAZOLE 2% CREAM TOP SCH ×2 (05:57→17:39)
[2022-04-30 06:00] VITALS: BP 138/80
[2022-04-30 06:09] LABS: HEMOGLOBIN 10.8 g/dl (12.0-15.5); MEAN CORPUSCULAR HEMOGLOBIN 23.8 pg (27.0-33.0); MEAN CORPUSCULAR HGB CONC 29.2 g/dl (32.0-36.5); MEAN CORPUSCULAR VOLUME 81.5 fl (80.0-96.0); PLATELET COUNT, AUTOMATED 307 10^3/uL (150-450); RED BLOOD COUNT 4.54 10^6/uL (4.00-5.40); WHITE BLOOD COUNT 6.2 10^3/uL (4.0-10.0)
[2022-04-30 06:31] LABS: BLOOD UREA NITROGEN 7 MG/DL (9-23); CALCIUM LEVEL 8.8 MG/DL (8.5-10.1); CARBON DIOXIDE LEVEL 29 MMOL/L (20-31); CHLORIDE LEVEL 105 MMOL/L (98-107); CREATININE FOR GFR 0.41 MG/DL (0.55-1.30); GLOMERULAR FILTRATION RATE > 60.0 (>58); GLUCOSE, FASTING 170 MG/DL (60-100); POTASSIUM SERUM 4.1 MMOL/L (3.5-5.1); SODIUM LEVEL 139 MMOL/L (136-145)
[2022-04-30] MEDS: MAGNESIUM OXIDE 400MG TAB (MAG-OX) PO SCH ×2 (08:01→21:42)
[2022-04-30] MEDS: INSULIN LISPRO (NovoLOG) PER UNIT SC SCH ×6 (08:01→21:00)
[2022-04-30] MEDS: DOCUSATE SODIUM 100MG CAPSULE PO SCH ×2 (08:02→21:00)
[2022-04-30] MEDS: LACTOBACILLUS ACIDOPHILUS CAP (BACID) PO SCH ×2 (08:02→17:34)
[2022-04-30] MEDS: VITAMIN D 1,000 INTERNATIONAL UNITS TABLET PO SCH (08:02)
[2022-04-30] MEDS: SODIUM CHLORIDE 0.9% INJ 10 ML SYR IV PRN ×2 (12:20→23:36)
[2022-04-30] MEDS ORDERED: VARIBAR PUDDING 40% w/v 230ML TUBE As Ordered ONE (13:25)
[2022-04-30] MEDS ORDERED: E-Z-PAQUE 96% w/w SUSP 176GM BTL As Ordered ONE (13:26)
[2022-04-30] MEDS ORDERED: VARIBAR NECTAR 40% w/v 240ML SUSP BTL As Ordered ONE (13:26)
[2022-04-30 14:00] VITALS: BP 139/80
[2022-04-30] MEDS: RIVAROXABAN 10MG TAB (XARELTO) PO SCH (17:36)
[2022-04-30 20:00] VITALS: BP 125/72
[2022-04-30] MEDS: FERROUS SULFATE 325MG TAB PO SCH (21:42)
[2022-04-30] MEDS: LEVEMIR (INSULIN DETEMIR) 1 UNITS/0.01ML SC SCH (21:43)
[2022-05-01] MEDS: SODIUM CHLORIDE 0.9% INJ 10 ML SYR IV PRN ×2 (00:26→14:20)
[2022-05-01] MEDS: LEVOTHYROXINE 25MCG TABLET (0.025MG) PO SCH (05:49)
[2022-05-01] MEDS: AMPICILLIN SOD/SULBACTAM SOD 3 GM in D5W MINI-BAG PLUS 100 ML IV SCH ×3 (05:49→18:23)
[2022-05-01] MEDS: LEVOTHYROXINE 150MCG TABLET (0.15MG) PO SCH (05:49)
[2022-05-01] MEDS: KETOCONAZOLE 2% CREAM TOP SCH ×2 (05:53→18:25)
[2022-05-01 06:00] VITALS: BP 123/71
[2022-05-01 06:26] LABS: HEMATOCRIT 38.2 % (36.0-47.0); HEMOGLOBIN 11.1 g/dl (12.0-15.5); MEAN CORPUSCULAR HEMOGLOBIN 23.5 pg (27.0-33.0); MEAN CORPUSCULAR HGB CONC 29.1 g/dl (32.0-36.5); MEAN CORPUSCULAR VOLUME 80.8 fl (80.0-96.0); PLATELET COUNT, AUTOMATED 312 10^3/uL (150-450); RED BLOOD COUNT 4.73 10^6/uL (4.00-5.40); WHITE BLOOD COUNT 5.6 10^3/uL (4.0-10.0)
[2022-05-01] MEDS: SODIUM CHLORIDE 0.9% INJ 10 ML SYR IV SCH ×2 (06:34→18:24)
[2022-05-01 06:44] LABS: ERYTHROCYTE SEDIMENTATION RATE 90 mm/hr (0-20)
[2022-05-01 06:55] LABS: BLOOD UREA NITROGEN 11 MG/DL (9-23); CALCIUM LEVEL 8.8 MG/DL (8.5-10.1); CARBON DIOXIDE LEVEL 30 MMOL/L (20-31); CHLORIDE LEVEL 104 MMOL/L (98-107); CREATININE FOR GFR 0.48 MG/DL (0.55-1.30); GLOMERULAR FILTRATION RATE > 60.0 (>58); GLUCOSE, FASTING 159 MG/DL (60-100); POTASSIUM SERUM 4.2 MMOL/L (3.5-5.1); SODIUM LEVEL 141 MMOL/L (136-145)
[2022-05-01] MEDS: INSULIN LISPRO (NovoLOG) PER UNIT SC SCH ×6 (08:31→20:30)
[2022-05-01] MEDS: DOCUSATE SODIUM 100MG CAPSULE PO SCH ×2 (08:33→20:30)
[2022-05-01] MEDS: LACTOBACILLUS ACIDOPHILUS CAP (BACID) PO SCH ×2 (08:33→18:24)
[2022-05-01] MEDS: VITAMIN D 1,000 INTERNATIONAL UNITS TABLET PO SCH (08:33)
[2022-05-01] MEDS: MAGNESIUM OXIDE 400MG TAB (MAG-OX) PO SCH ×2 (08:33→20:30)
[2022-05-01] MEDS ORDERED: AMOX875T2 PO (10:45)
[2022-05-01] MEDS ORDERED: RISATAB3 PO (10:45)
[2022-05-01] MEDS ORDERED: HYDR-3715 PO (10:45)
[2022-05-01 14:00] VITALS: BP 118/72
[2022-05-01] MEDS: RIVAROXABAN 10MG TAB (XARELTO) PO SCH (18:24)
[2022-05-01 20:09] VITALS: BP 132/80
[2022-05-01] MEDS: LEVEMIR (INSULIN DETEMIR) 1 UNITS/0.01ML SC SCH (20:31)
[2022-05-02] MEDS: HYDROmorphone HCL 2MG/ML 1ML VIAL IV PRN (00:25)
[2022-05-02] MEDS: AMPICILLIN SOD/SULBACTAM SOD 3 GM in D5W MINI-BAG PLUS 100 ML IV SCH ×3 (00:25→12:33)
[2022-05-02] MEDS: SODIUM CHLORIDE 0.9% INJ 10 ML SYR IV PRN ×3 (00:25→06:03)
[2022-05-02 05:26] VITALS: BP 129/81
[2022-05-02 05:49] LABS: BASO % 0.6 % (0.0-1.0); EOS # 0.2 10^3/uL (0.0-0.5); EOS % 2.6 % (0.0-3.0); HEMATOCRIT 38.5 % (36.0-47.0); HEMOGLOBIN 11.3 g/dl (12.0-15.5); LYMPH # 1.7 10^3/uL (1.5-5.0); LYMPH % 24.3 % (24.0-44.0); MEAN CORPUSCULAR HEMOGLOBIN 23.6 pg (27.0-33.0); MEAN CORPUSCULAR HGB CONC 29.4 g/dl (32.0-36.5); MEAN CORPUSCULAR VOLUME 80.4 fl (80.0-96.0); MONO # 0.5 10^3/uL (0.0-0.8); MONO % 6.7 % (2.0-8.0); NEUTROPHILS # 4.5 10^3/uL (1.5-8.5); NEUTROPHILS % 65.2 % (36.0-66.0); PLATELET COUNT, AUTOMATED 299 10^3/uL (150-450); RED BLOOD COUNT 4.79 10^6/uL (4.00-5.40); WHITE BLOOD COUNT 6.9 10^3/uL (4.0-10.0)
[2022-05-02 06:00] VITALS: BP 102/67
[2022-05-02] MEDS: LEVOTHYROXINE 25MCG TABLET (0.025MG) PO SCH (06:03)
[2022-05-02] MEDS: LEVOTHYROXINE 150MCG TABLET (0.15MG) PO SCH (06:03)
[2022-05-02] MEDS: KETOCONAZOLE 2% CREAM TOP SCH (06:06)
[2022-05-02 06:15] LABS: BLOOD UREA NITROGEN 12 MG/DL (9-23); CALCIUM LEVEL 9.4 MG/DL (8.5-10.1); CARBON DIOXIDE LEVEL 28 MMOL/L (20-31); CHLORIDE LEVEL 103 MMOL/L (98-107); GLOMERULAR FILTRATION RATE > 60.0 (>58); GLUCOSE, FASTING 203 MG/DL (60-100); POTASSIUM SERUM 4.2 MMOL/L (3.5-5.1); SODIUM LEVEL 138 MMOL/L (136-145)
[2022-05-02] MEDS: SODIUM CHLORIDE 0.9% INJ 10 ML SYR IV SCH (06:42)
[2022-05-02] MEDS: INSULIN LISPRO (NovoLOG) PER UNIT SC SCH ×4 (08:18→12:48)
[2022-05-02] MEDS: LACTOBACILLUS ACIDOPHILUS CAP (BACID) PO SCH (08:19)
[2022-05-02] MEDS: MAGNESIUM OXIDE 400MG TAB (MAG-OX) PO SCH (08:19)
[2022-05-02] MEDS: VITAMIN D 1,000 INTERNATIONAL UNITS TABLET PO SCH (08:19)
[2022-05-02] MEDS: DOCUSATE SODIUM 100MG CAPSULE PO SCH ×2 (08:19→08:26)
== END 2022-05-02 15:45 | disposition home health service (06) | DRG 711 ==
LOC: M ED 22:46 → M ED INP 04-23 02:27 → ENRESERV 04-23 02:42 → M MSPAV 04-23 03:36
PROVIDERS: ADMIT Specialist; ATTEND Internal Medicine
PROC: 0W960ZZ Drainage of Neck, Open Approach (ICD-10-PCS; principal; 2022-04-24 12:30)
PROC: 02HV33Z Insertion of Infusion Device into Superior Vena Cava, Percutaneous Approach (ICD-10-PCS; 2022-04-26)
DX: T81.40XA Infection following a procedure, unspecified, initial encounter (principal); Z68.42 Body mass index [BMI] 45.0-49.9, adult; L02.11 Cutaneous abscess of neck; R13.10 Dysphagia, unspecified; E83.42 Hypomagnesemia; B37.9 Candidiasis, unspecified; D50.9 Iron deficiency anemia, unspecified; E66.9 Obesity, unspecified; E11.9 Type 2 diabetes mellitus without complications; E03.9 Hypothyroidism, unspecified; Z85.850 Personal history of malignant neoplasm of thyroid; Z79.899 Other long term (current) drug therapy; G47.33 Obstructive sleep apnea (adult) (pediatric); Y84.8 Other medical procedures as the cause of abnormal reaction of the patient, or of later complication, without mention of misadventure at the time of the procedure

== ENCOUNTER → 2022-05-08 | Outpatient (REF) | payer BC, MEDICAID ==
[~2022-05-08] MED LIST changes: +AMOX875T2 PO; +GOOD200C PO; +LEVO175T2 PO; +RISATAB3 PO; +ROCA0.25 PO; +VITA100093 PO
[2022-05-08 18:15] LABS: BACTERIA, URINE AUTO NEGATIVE (NEGATIVE); CALCIUM OXALATE CRYSTALS SMALL; RBC, URINE AUTO 0 /HPF (0-3); SQUAMOUS EPITHELIAL CELL UR AU 1 /HPF (0-6); WBC, URINE AUTO 0 /HPF (0-3)
== END ==
LOC: M LAB REF 16:35
PROVIDERS: ATTEND Pediatrics
DX: R10.32 Left lower quadrant pain (principal)

== ENCOUNTER → 2022-05-28 | Outpatient (CLI) | payer BC, MEDICAID | LOC: M RAD 06:33 | PROVIDERS: ATTEND Pediatrics | DX: K80.00 Calculus of gallbladder with acute cholecystitis without obstruction (principal); K76.89 Other specified diseases of liver ==

== ENCOUNTER → 2022-05-29 | Outpatient (CLI) | payer BC, MEDICAID | LOC: M LAB 06:38 | PROVIDERS: ATTEND Otolaryngology | DX: C73 Malignant neoplasm of thyroid gland (principal) ==

== ENCOUNTER → 2022-06-11 | Outpatient (REF) | payer BC, MEDICAID ==
[2022-06-11 20:35] LABS: ALBUMIN 3.6 G/DL (3.2-5.2); BILIRUBIN,DIRECT 0.1 MG/DL (<0.4); BILIRUBIN,TOTAL 0.3 MG/DL (0.3-1.2); CHOLESTEROL RISK RATIO 3.5 (<5); HDL CHOLESTEROL 43.6 MG/DL (>40); LDL CHOLESTEROL 94.2 MG/DL (<100); NON-HDL-C 109.4 MG/DL; TOTAL PROTEIN 6.8 G/DL (5.7-8.2)
== END ==
LOC: M LAB REF 17:16
PROVIDERS: ATTEND Pediatrics
DX: E78.5 Hyperlipidemia, unspecified (principal); K76.9 Liver disease, unspecified

== ENCOUNTER → 2022-06-19 | Outpatient (CLI) | payer BC, MEDICAID ==
[~2022-06-19] MED LIST changes: -ORPH100T; +ORPH1TAB6
[2022-06-19 10:02] LABS: CALCIUM LEVEL 9.2 MG/DL (8.5-10.1); MAGNESIUM LEVEL 1.6 MG/DL (1.8-2.4)
[2022-06-19 10:07] LABS: THYROID STIMULATING HORMONE 5.401 uIU/ML (0.55-4.78)
== END ==
LOC: M LAB 08:47
PROVIDERS: ATTEND Otolaryngology
DX: C73 Malignant neoplasm of thyroid gland (principal)

== ENCOUNTER → 2022-06-22 | Outpatient (CLI) | payer BC, MEDICAID ==
[2022-06-22 11:27] LABS: BLOOD UREA NITROGEN 17 MG/DL (9-23); CALCIUM LEVEL 9.1 MG/DL (8.5-10.1); CARBON DIOXIDE LEVEL 28 MMOL/L (20-31); CHLORIDE LEVEL 104 MMOL/L (98-107); CREATININE FOR GFR 0.54 MG/DL (0.55-1.30); GLOMERULAR FILTRATION RATE > 60.0 (>58); GLUCOSE, FASTING 132 MG/DL (60-100); POTASSIUM SERUM 4.1 MMOL/L (3.5-5.1); SODIUM LEVEL 139 MMOL/L (136-145)
== END ==
LOC: M LAB 10:07
PROVIDERS: ATTEND Pediatrics
DX: R93.89 Abnormal findings on diagnostic imaging of other specified body structures (principal)

== ENCOUNTER → 2022-06-25 | Outpatient (CLI) | payer BC, MEDICAID ==
[~2022-06-25] MED LIST changes: +PROHANCE 279.3MG/ML 15ML VIAL ONE; +PROHANCE 279.3MG/ML 5ML VIAL ONE
== END ==
LOC: M PLAIMG 07:30
PROVIDERS: ATTEND Pediatrics
DX: K76.9 Liver disease, unspecified (principal)
CPT/HCPCS: 74183; A9576

== ENCOUNTER → 2022-07-09 | Outpatient (CLI) | payer BC, MEDICAID ==
[~2022-07-09] MED LIST changes: -PROHANCE 279.3MG/ML 15ML VIAL ONE; -PROHANCE 279.3MG/ML 5ML VIAL ONE
== END ==
LOC: M RAD 15:27
PROVIDERS: ATTEND Pediatrics
DX: M79.601 Pain in right arm (principal)

== ENCOUNTER → 2022-08-13 | Outpatient (REF) | payer BC, MEDICAID ==
[2022-08-13 18:00] LABS: BASO % 0.4 % (0.0-1.0); EOS # 0.1 10^3/uL (0.0-0.5); EOS % 1.4 % (0.0-3.0); HEMATOCRIT 44.9 % (36.0-47.0); LYMPH # 1.7 10^3/uL (1.5-5.0); LYMPH % 21.9 % (24.0-44.0); MEAN CORPUSCULAR HEMOGLOBIN 26.1 pg (27.0-33.0); MEAN CORPUSCULAR HGB CONC 31.2 g/dl (32.0-36.5); MEAN CORPUSCULAR VOLUME 83.8 fl (80.0-96.0); MONO # 0.4 10^3/uL (0.0-0.8); MONO % 5.2 % (2.0-8.0); NEUTROPHILS # 5.4 10^3/uL (1.5-8.5); PLATELET COUNT, AUTOMATED 268 10^3/uL (150-450); RED BLOOD COUNT 5.36 10^6/uL (4.00-5.40); WHITE BLOOD COUNT 7.7 10^3/uL (4.0-10.0)
[2022-08-13 18:18] LABS: IRON (FE) 41 UG/DL (50-170); PERCENT SATURATION 10.7 % (13.2-45.0); TOTAL IRON BINDING CAPACITY 384 UG/DL (250-425)
[2022-08-13 18:19] LABS: ALBUMIN 3.7 G/DL (3.2-5.2); ALKALINE PHOSPHATASE 124 U/L (46-116); ALT/SGPT 31 U/L (7.0-40); AST/SGOT 9 U/L (<34); BILIRUBIN,TOTAL 0.3 MG/DL (0.3-1.2); BLOOD UREA NITROGEN 16 MG/DL (9-23); CALCIUM LEVEL 8.6 MG/DL (8.5-10.1); CARBON DIOXIDE LEVEL 24 MMOL/L (20-31); CHLORIDE LEVEL 105 MMOL/L (98-107); CHOLESTEROL LEVEL 124 MG/DL (<200); CHOLESTEROL RISK RATIO 3.02 (<5); CREATININE FOR GFR 0.58 MG/DL (0.55-1.30); GLOMERULAR FILTRATION RATE > 60.0 (>58); GLUCOSE, FASTING 130 MG/DL (60-100); LDL CHOLESTEROL 55.8 MG/DL (<100); POTASSIUM SERUM 4.1 MMOL/L (3.5-5.1); SODIUM LEVEL 139 MMOL/L (136-145); TRIGLYCERIDES LEVEL 136 MG/DL (<150)
[2022-08-13 18:22] LABS: FERRITIN 15.6 NG/ML (7.3-270.7); THYROID STIMULATING HORMONE 3.214 uIU/ML (0.55-4.78)
[2022-08-13 18:23] LABS: FREE T4 1.56 NG/DL (0.89-1.76)
[2022-08-13 18:28] LABS: HEMOGLOBIN A1c 7.2 % (4.0-6.0)
== END ==
LOC: M LAB REF 16:34
PROVIDERS: ATTEND Pediatrics
DX: E11.9 Type 2 diabetes mellitus without complications (principal); E78.5 Hyperlipidemia, unspecified; D50.9 Iron deficiency anemia, unspecified; E89.0 Postprocedural hypothyroidism

== ENCOUNTER → 2022-08-23 | Outpatient (REF) | payer BC, MEDICAID | LOC: M PLALAB 14:53 | PROVIDERS: ATTEND Nurse Practitioner Family | DX: Z12.4 Encounter for screening for malignant neoplasm of cervix (principal); R87.5 Abnormal microbiological findings in specimens from female genital organs | CPT/HCPCS: 87624; G0123 ==

== ENCOUNTER → 2022-10-08 | Outpatient (REF) | payer BC, MEDICAID ==
[2022-10-08 17:19] LABS: ALBUMIN 3.9 G/DL (3.2-5.2); ALKALINE PHOSPHATASE 131 U/L (46-116); ALT/SGPT 41 U/L (7.0-40); AST/SGOT 13 U/L (<34); BILIRUBIN,TOTAL 0.7 MG/DL (0.3-1.2); BLOOD UREA NITROGEN 11 MG/DL (9-23); CALCIUM LEVEL 8.6 MG/DL (8.5-10.1); CARBON DIOXIDE LEVEL 23 MMOL/L (20-31); CHLORIDE LEVEL 107 MMOL/L (98-107); CREATININE FOR GFR 0.52 MG/DL (0.55-1.30); GLOMERULAR FILTRATION RATE > 60.0 (>58); GLUCOSE, FASTING 164 MG/DL (60-100); MAGNESIUM LEVEL 1.7 MG/DL (1.8-2.4); POTASSIUM SERUM 3.9 MMOL/L (3.5-5.1); SODIUM LEVEL 142 MMOL/L (136-145)
[2022-10-08 17:21] LABS: THYROID STIMULATING HORMONE 10.607 uIU/ML (0.55-4.78)
== END ==
LOC: M LAB REF 16:09
PROVIDERS: ATTEND Pediatrics
DX: I45.81 Long QT syndrome (principal); E03.9 Hypothyroidism, unspecified

== ENCOUNTER → 2022-10-16 | Outpatient (CLI) | payer BC, MEDICAID | LOC: M EKG 12:46 | PROVIDERS: ATTEND Pediatrics | DX: Z01.818 Encounter for other preprocedural examination (principal) ==

== ENCOUNTER 2022-10-24 06:08 | Day surgery (SDC) | payer BC, MEDICAID ==
[~2022-10-24] VITALS: Ht 162.6 cm; Wt 118.0 kg
[~2022-10-24 06:08] MED LIST changes: +AMPICILLIN SOD/SULBACTAM SOD 3 GM in D5W MINI-BAG PLUS 100 ML IV ONE; +CelecoXIB 400 MG CAP PO ONE; +INDOCYANINE GREEN 25MG VIAL (IC-GREEN) IV ONE
[2022-10-24] MEDS ORDERED: LR 1,000 ML IV SCH ×2 (06:55→09:00)
[2022-10-24] MEDS ORDERED: INDOCYANINE GREEN 25MG VIAL (IC-GREEN) As Ordered ONE (07:17)
[2022-10-24] MEDS ORDERED: ROCURONIUM BROMIDE 50MG/5ML VIAL As Ordered ONE (07:17)
[2022-10-24] MEDS ORDERED: LIDOCAINE 1% SDV 30ML VIAL As Ordered ONE (07:17)
[2022-10-24] MEDS ORDERED: propofoL 200 MG/20 ML VIAL As Ordered ONE (07:17)
[2022-10-24] MEDS ORDERED: LIDOCAINE 2% 100MG/5ML SDV (FOR ANES.) As Ordered ONE (07:17)
[2022-10-24] MEDS ORDERED: MIDAZOLAM INJ 2MG/2ML VIAL As Ordered ONE (07:18)
[2022-10-24] MEDS ORDERED: fentaNYL 100 MCG/2 ML INJECTION As Ordered ONE (07:18)
[2022-10-24] MEDS ORDERED: HYDROmorphone HCL 2MG/ML 1ML VIAL As Ordered ONE (07:54)
[2022-10-24] MEDS ORDERED: KETOROLAC 60MG 2ML VIAL As Ordered ONE (08:19)
[2022-10-24] MEDS ORDERED: ACETAMINOPHEN 1000MG 100ML IV BAG As Ordered ONE (08:19)
[2022-10-24] MEDS ORDERED: SUGAMMADEX SODIUM 500 MG/5 ML VIAL (BRIDION) As Ordered ONE (08:19)
[2022-10-24] MEDS ORDERED: ONDANSETRON 4MG 2ML VIAL As Ordered ONE (08:19)
[2022-10-24] MEDS ORDERED: METOCLOPRAMIDE INJ 10MG/2ML VIAL As Ordered ONE (08:19)
[2022-10-24] MEDS ORDERED: oxyCODONE 5MG TAB PO PRN (09:00)
[2022-10-24] MEDS ORDERED: ONDANSETRON 4MG 2ML VIAL IV PRN (09:00)
[2022-10-24] MEDS ORDERED: fentaNYL 100 MCG/2 ML INJECTION IV PRN (09:00)
[2022-10-24] MEDS ORDERED: INSULIN LISPRO (NovoLOG) PER UNIT SC PRN (09:45)
[2022-10-24] MEDS ORDERED: NORCO, ANEXSIA 5/325MG TABLET (HYDROcodone/ACETAMINOPHEN) PO PRN ×2 (09:45)
[2022-10-24 10:53] VITALS: BP 126/78; TEMP 97.7; O2SAT 97
[2022-10-24] MEDS ORDERED: KETOROLAC 30 MG/ML 1ML VIAL IV SCH (15:00)
== END 2022-10-24 11:20 | disposition home or self-care (01) ==
LOC: M SDC 06:08
PROVIDERS: ATTEND Surgery
DX: K80.10 Calculus of gallbladder with chronic cholecystitis without obstruction (principal); E11.9 Type 2 diabetes mellitus without complications; E03.9 Hypothyroidism, unspecified; D64.9 Anemia, unspecified; Z85.850 Personal history of malignant neoplasm of thyroid; Z85.41 Personal history of malignant neoplasm of cervix uteri; Z79.84 Long term (current) use of oral hypoglycemic drugs; Z79.899 Other long term (current) drug therapy
CPT/HCPCS: 47563; 88304; J0131; J0295; J0665; J1100; J1170; J1815; J1885; J2250; J2405; J2765; J3010; Q9968; S2900

== ENCOUNTER → 2023-02-04 | Outpatient (CLI) | payer BC, MEDICAID ==
[~2023-02-04] MED LIST changes: -AMPICILLIN SOD/SULBACTAM SOD 3 GM in D5W MINI-BAG PLUS 100 ML IV ONE; +CELE0.09; -CELE1CAP9; -CelecoXIB 400 MG CAP PO ONE; -INDOCYANINE GREEN 25MG VIAL (IC-GREEN) IV ONE
== END ==
LOC: M SLEEP 20:00
PROVIDERS: ATTEND Nurse Practitioner Family
DX: R40.0 Somnolence (principal); G47.33 Obstructive sleep apnea (adult) (pediatric)

== ENCOUNTER → 2023-02-04 | Outpatient (CLI) | payer BC, MEDICAID | LOC: M RAD 07:45 | PROVIDERS: ATTEND Pediatrics | DX: R10.11 Right upper quadrant pain (principal); Z90.49 Acquired absence of other specified parts of digestive tract ==

== ENCOUNTER → 2023-02-28 | Outpatient (CLI) | payer BC, MEDICAID | LOC: M WHC 09:54 | PROVIDERS: ATTEND Nurse Practitioner Family | DX: Z12.31 Encounter for screening mammogram for malignant neoplasm of breast (principal) ==

== ENCOUNTER → 2023-02-28 | Outpatient (REF) | payer BC | LOC: M SFHCWAGY 16:01 | PROVIDERS: ATTEND Nurse Practitioner Family | DX: Z12.4 Encounter for screening for malignant neoplasm of cervix (principal) | CPT/HCPCS: 87624; G0123 ==

== ENCOUNTER → 2023-05-07 | Outpatient (CLI) | payer BC, OTHER | LOC: M PLAIMG 12:56 | PROVIDERS: ATTEND Pediatrics | DX: R10.11 Right upper quadrant pain (principal) ==

== ENCOUNTER → 2023-05-20 | Outpatient (CLI) | payer BC, OTHER ==
[2023-05-20 10:21] LABS: HEMOGLOBIN A1c 7.4 % (4.0-6.0)
[2023-05-20 10:24] LABS: CREATININE, URINE 50.6 MG/DL; MAU/CREAT RATIO 25.6 MCG/MG (0.0-30.0)
[2023-05-20 10:30] LABS: ALBUMIN 3.8 G/DL (3.2-5.2); ALKALINE PHOSPHATASE 112 U/L (46-116); ALT/SGPT 57 U/L (7.0-40); AST/SGOT 19 U/L (<34); BILIRUBIN,TOTAL 0.4 MG/DL (0.3-1.2); BLOOD UREA NITROGEN 16 MG/DL (9-23); CALCIUM LEVEL 9.1 MG/DL (8.5-10.1); CARBON DIOXIDE LEVEL 24 MMOL/L (20-31); CHLORIDE LEVEL 106 MMOL/L (98-107); CREATININE FOR GFR 0.41 MG/DL (0.55-1.30); GLOMERULAR FILTRATION RATE > 60.0 (>58); GLUCOSE, FASTING 153 MG/DL (60-100); POTASSIUM SERUM 3.9 MMOL/L (3.5-5.1); SODIUM LEVEL 140 MMOL/L (136-145); TOTAL PROTEIN 7.4 G/DL (5.7-8.2)
[2023-05-20 10:33] LABS: VITAMIN B12 LEVEL 253 PG/ML (211-911)
== END ==
LOC: M LAB 09:19
PROVIDERS: ATTEND Pediatrics
DX: E11.9 Type 2 diabetes mellitus without complications (principal); Z79.899 Other long term (current) drug therapy

== ENCOUNTER 2023-09-02 09:18 | Emergency (ER) | payer BC, OTHER ==
[~2023-09-02] VITALS: Ht 162.6 cm; Wt 114.3 kg
[2023-09-02 09:19] VITALS: TEMP 99.5
[2023-09-02] MEDS ORDERED: LEVO50TA5 PO (09:31)
[2023-09-02] MEDS ORDERED: LEVO100T5 PO (09:31)
[2023-09-02 12:38] VITALS: BP 145/71; O2SAT 99
== END 2023-09-02 13:07 | disposition home or self-care (01) ==
LOC: M ED 09:18
DX: S93.401A Sprain of unspecified ligament of right ankle, initial encounter (principal); M77.31 Calcaneal spur, right foot; X50.0XXA Overexertion from strenuous movement or load, initial encounter; E11.9 Type 2 diabetes mellitus without complications; E03.9 Hypothyroidism, unspecified; M54.31 Sciatica, right side; E61.1 Iron deficiency; Z79.4 Long term (current) use of insulin; Z79.1 Long term (current) use of non-steroidal anti-inflammatories (NSAID); Z79.899 Other long term (current) drug therapy; Y92.009 Unspecified place in unspecified non-institutional (private) residence as the place of occurrence of the external cause; Y93.89 Activity, other specified; Y99.9 Unspecified external cause status

== ENCOUNTER → 2023-09-17 | Outpatient (CLI) | payer BC, OTHER ==
[~2023-09-17] MED LIST changes: +LEVO100T5 PO; +LEVO50TA5 PO
== END ==
LOC: M PAIN 08:00
PROVIDERS: ATTEND Nurse Practitioner Family
DX: M79.18 Myalgia, other site (principal); E11.9 Type 2 diabetes mellitus without complications; D64.9 Anemia, unspecified; Z85.850 Personal history of malignant neoplasm of thyroid; Z85.42 Personal history of malignant neoplasm of other parts of uterus; Z79.890 Hormone replacement therapy; Z79.84 Long term (current) use of oral hypoglycemic drugs; Z79.899 Other long term (current) drug therapy

== ENCOUNTER → 2023-09-20 | Outpatient (CLI) | payer BC, OTHER | LOC: M PAIN 15:30 | PROVIDERS: ATTEND Nurse Practitioner Family | DX: M79.18 Myalgia, other site (principal); G89.29 Other chronic pain; E11.9 Type 2 diabetes mellitus without complications; D64.9 Anemia, unspecified; Z85.850 Personal history of malignant neoplasm of thyroid; Z85.43 Personal history of malignant neoplasm of ovary; Z79.890 Hormone replacement therapy; Z79.84 Long term (current) use of oral hypoglycemic drugs; Z79.899 Other long term (current) drug therapy ==

== ENCOUNTER → 2023-11-14 | Outpatient (REF) | payer BC, OTHER ==
[2023-11-14 15:11] LABS: ALBUMIN 3.8 G/DL (3.2-5.2); ALKALINE PHOSPHATASE 111 U/L (46-116); ALT/SGPT 42 U/L (7.0-40); AST/SGOT 17 U/L (<34); BILIRUBIN,TOTAL 0.3 MG/DL (0.3-1.2); BLOOD UREA NITROGEN 13 MG/DL (9-23); CALCIUM LEVEL 9.7 MG/DL (8.5-10.1); CARBON DIOXIDE LEVEL 26 MMOL/L (20-31); CHLORIDE LEVEL 106 MMOL/L (98-107); CHOLESTEROL LEVEL 174 MG/DL (<200); CHOLESTEROL RISK RATIO 4.49 (<5); CREATININE FOR GFR 0.49 MG/DL (0.55-1.30); GLOMERULAR FILTRATION RATE > 60.0 (>58); GLUCOSE, FASTING 101 MG/DL (60-100); HDL CHOLESTEROL 38.7 MG/DL (>40); LDL CHOLESTEROL 110.5 MG/DL (<100); NON-HDL-C 135.3 MG/DL; POTASSIUM SERUM 3.8 MMOL/L (3.5-5.1); SODIUM LEVEL 140 MMOL/L (136-145); TOTAL PROTEIN 7.3 G/DL (5.7-8.2); TRIGLYCERIDES LEVEL 124 MG/DL (<150)
[2023-11-14 15:16] LABS: THYROID STIMULATING HORMONE 0.067 uIU/ML (0.55-4.78)
== END ==
LOC: M LAB REF 14:24
PROVIDERS: ATTEND Pediatrics
DX: E89.0 Postprocedural hypothyroidism (principal)

== ENCOUNTER → 2023-11-22 | Outpatient (CLI) | payer BC, OTHER ==
[~2023-11-22] MED LIST changes: +TRIAMCINOLONE ACETONIDE SUSP 40MG/ML 1ML VIAL As Ordered ONE
== END ==
LOC: M PAIN 14:30
PROVIDERS: ATTEND Anesthesiology
DX: M79.18 Myalgia, other site (principal); G89.29 Other chronic pain; E11.9 Type 2 diabetes mellitus without complications; D64.9 Anemia, unspecified; Z79.890 Hormone replacement therapy; Z79.84 Long term (current) use of oral hypoglycemic drugs; Z79.899 Other long term (current) drug therapy
CPT/HCPCS: 20552; J0665; J3301

== ENCOUNTER → 2023-12-23 | Outpatient (CLI) | payer BC, OTHER ==
[~2023-12-23] MED LIST changes: -TRIAMCINOLONE ACETONIDE SUSP 40MG/ML 1ML VIAL As Ordered ONE
== END ==
LOC: M PAIN 14:45
PROVIDERS: ATTEND Nurse Practitioner Family
DX: G89.29 Other chronic pain (principal); M79.18 Myalgia, other site; R10.11 Right upper quadrant pain; E11.9 Type 2 diabetes mellitus without complications; D64.9 Anemia, unspecified; Z85.850 Personal history of malignant neoplasm of thyroid; Z85.42 Personal history of malignant neoplasm of other parts of uterus; Z79.890 Hormone replacement therapy; Z79.84 Long term (current) use of oral hypoglycemic drugs; Z79.899 Other long term (current) drug therapy

== ENCOUNTER → 2024-01-14 | Outpatient (CLI) | payer OTHER ==
[2024-01-14 13:46] LABS: PLATELET COUNT, AUTOMATED 273 10^3/uL (150-450)
[2024-01-14 13:59] LABS: INR 0.9; PARTIAL THROMBOPLASTIN TIME 25.6 SECONDS (24.8-34.2); PROTHROMBIN TIME 12.5 SECONDS (12.5-14.5)
== END ==
LOC: M LAB 13:06
PROVIDERS: ATTEND Physician Assistant Surgical
DX: Z01.818 Encounter for other preprocedural examination (principal)

== ENCOUNTER → 2024-01-17 | Outpatient (REF) | payer BC, OTHER | LOC: M LAB REF 16:42 | PROVIDERS: ATTEND Pediatrics | DX: E89.0 Postprocedural hypothyroidism (principal) ==

== ENCOUNTER → 2024-01-27 | Outpatient (CLI) | payer OTHER | LOC: M RAD 08:31 | PROVIDERS: ATTEND Physician Assistant Surgical | DX: M47.26 Other spondylosis with radiculopathy, lumbar region (principal); M51.27 Other intervertebral disc displacement, lumbosacral region; M51.26 Other intervertebral disc displacement, lumbar region ==

== ENCOUNTER → 2024-02-03 | Outpatient (CLI) | payer BC, OTHER | LOC: M WHC 11:52 | PROVIDERS: ATTEND Pediatrics | DX: Z13.820 Encounter for screening for osteoporosis (principal); M85.88 Other specified disorders of bone density and structure, other site ==

== ENCOUNTER → 2024-02-19 | Outpatient (CLI) | payer BC, OTHER | LOC: M PAIN 13:45 | PROVIDERS: ATTEND Anesthesiology | DX: M79.18 Myalgia, other site (principal); M79.10 Myalgia, unspecified site; M94.0 Chondrocostal junction syndrome [Tietze]; R10.11 Right upper quadrant pain; E11.9 Type 2 diabetes mellitus without complications; D64.9 Anemia, unspecified; Z85.850 Personal history of malignant neoplasm of thyroid; Z79.890 Hormone replacement therapy; Z79.84 Long term (current) use of oral hypoglycemic drugs; Z79.899 Other long term (current) drug therapy ==

== ENCOUNTER → 2024-04-20 | Outpatient (REF) | payer BC, OTHER ==
[~2024-04-20] MED LIST changes: -GOOD200C PO; +IBUP200C35 PO
[2024-04-20 18:31] LABS: CREATININE, URINE 40.4 MG/DL; MALB URINE SIEMENS < 3.0 MG/L
== END ==
LOC: M LAB REF 16:21
PROVIDERS: ATTEND Pediatrics
DX: E11.9 Type 2 diabetes mellitus without complications (principal)

== ENCOUNTER → 2024-04-28 | Outpatient (REF) | LOC: M EMP 10:20 | PROVIDERS: ATTEND Family Medicine | DX: Z11.52 Encounter for screening for COVID-19 (principal) ==

== ENCOUNTER → 2024-07-21 | Outpatient (REF) | payer BC, OTHER ==
[~2024-07-21] MED LIST changes: -LEVO175C PO; +LEVO175C2 PO; -NYST-13 EXT; +NYST0.1C EXT
[2024-07-21 17:57] LABS: BASO # 0.1 10^3/uL (0.0-0.2); BASO % 0.8 % (0.0-1.0); EOS # 0.2 10^3/uL (0.0-0.5); EOS % 2.4 % (0.0-3.0); HEMATOCRIT 42.6 % (36.0-47.0); HEMOGLOBIN 13.8 g/dl (12.0-15.5); LYMPH # 1.7 10^3/uL (1.5-5.0); LYMPH % 27.2 % (24.0-44.0); MEAN CORPUSCULAR HEMOGLOBIN 28.3 pg (27.0-33.0); MEAN CORPUSCULAR HGB CONC 32.4 g/dl (32.0-36.5); MEAN CORPUSCULAR VOLUME 87.3 fl (80.0-96.0); MONO # 0.5 10^3/uL (0.0-0.8); MONO % 7.3 % (2.0-8.0); NEUTROPHILS # 3.8 10^3/uL (1.5-8.5); NEUTROPHILS % 62.1 % (36.0-66.0); PLATELET COUNT, AUTOMATED 273 10^3/uL (150-450); RED BLOOD COUNT 4.88 10^6/uL (4.00-5.40); WHITE BLOOD COUNT 6.2 10^3/uL (4.0-10.0)
[2024-07-21 18:11] LABS: THYROID STIMULATING HORMONE 0.343 uIU/ML (0.55-4.78)
[2024-07-21 18:13] LABS: ALBUMIN 3.7 G/DL (3.2-5.2); ALKALINE PHOSPHATASE 101 U/L (35-104); ALT/SGPT 42 U/L (7.0-40); AST/SGOT 17 U/L (<34); BILIRUBIN,TOTAL 0.3 MG/DL (0.3-1.2); BLOOD UREA NITROGEN 15 MG/DL (9-23); CALCIUM LEVEL 9.1 MG/DL (8.5-10.1); CARBON DIOXIDE LEVEL 26 MMOL/L (20-31); CHLORIDE LEVEL 106 MMOL/L (98-107); CHOLESTEROL LEVEL 165 MG/DL (<200); CHOLESTEROL RISK RATIO 3.75 (<5); CREATININE FOR GFR 0.62 MG/DL (0.55-1.30); GLOMERULAR FILTRATION RATE > 90.0 (>58); GLUCOSE, FASTING 113 MG/DL (60-100); HDL CHOLESTEROL 43.9 MG/DL (>40); IRON (FE) 59 UG/DL (50-170); LDL CHOLESTEROL 100.9 MG/DL (<100); NON-HDL-C 121.1 MG/DL; PERCENT SATURATION 15.2 % (13.2-45.0); POTASSIUM SERUM 4.1 MMOL/L (3.5-5.1); SODIUM LEVEL 142 MMOL/L (136-145); TOTAL 25(OH) VITAMIN D 19.1 NG/ML (20.0-100.0); TOTAL IRON BINDING CAPACITY 388 UG/DL (250-425); TOTAL PROTEIN 7.2 G/DL (5.7-8.2); TRIGLYCERIDES LEVEL 101 MG/DL (<150)
[2024-07-21 18:26] LABS: HEMOGLOBIN A1c 5.6 % (4.0-6.0)
== END ==
LOC: M LAB REF 16:37
PROVIDERS: ATTEND Pediatrics
DX: E11.9 Type 2 diabetes mellitus without complications (principal); E78.5 Hyperlipidemia, unspecified; D50.9 Iron deficiency anemia, unspecified; E89.0 Postprocedural hypothyroidism; E55.9 Vitamin D deficiency, unspecified

== ENCOUNTER → 2024-07-30 | Outpatient (CLI) | payer BC | LOC: M PLARAD 11:06 | PROVIDERS: ATTEND Pediatrics | DX: M54.14 Radiculopathy, thoracic region (principal); M43.04 Spondylolysis, thoracic region; M51.24 Other intervertebral disc displacement, thoracic region ==

== ENCOUNTER → 2024-10-21 | Outpatient (CLI) | payer BC ==
[~2024-10-21] MED LIST changes: +HYDR-3713 PO; +ISOVUE-370 76% 100 ML VIAL As Ordered ONE; +TIRZ10PE
[2024-10-21 16:37] LABS: BASO # 0.0 10^3/uL (0.0-0.2); BASO % 0.5 % (0.0-1.0); EOS # 0.1 10^3/uL (0.0-0.5); EOS % 2.0 % (0.0-3.0); LYMPH # 1.6 10^3/uL (1.5-5.0); LYMPH % 23.5 % (24.0-44.0); MONO # 0.5 10^3/uL (0.0-0.8); MONO % 7.0 % (2.0-8.0); NEUTROPHILS # 4.4 10^3/uL (1.5-8.5); NEUTROPHILS % 66.8 % (36.0-66.0); PLATELET COUNT, AUTOMATED 298 10^3/uL (150-450)
[2024-10-21 17:00] LABS: ESTIMATED AVERAGE GLUCOSE 123.0 MG/DL (60-110)
== END ==
LOC: M RAD 16:17
PROVIDERS: ATTEND Pediatrics
DX: R07.89 Other chest pain (principal)
CPT/HCPCS: 36415; 71275; 82565; 83036; 84484; 85025; Q9967

== ENCOUNTER → 2024-10-28 | Outpatient (REF) | payer BC ==
[~2024-10-28] MED LIST changes: -ISOVUE-370 76% 100 ML VIAL As Ordered ONE
[2024-10-28 15:23] LABS: C REACTIVE PROTEIN QUANTITATIV < 0.50 MG/DL (<1.0)
== END ==
LOC: M LAB REF 14:47
PROVIDERS: ATTEND Pediatrics
DX: Q45.3 Other congenital malformations of pancreas and pancreatic duct (principal); E89.0 Postprocedural hypothyroidism

== ENCOUNTER → 2024-12-17 | Outpatient (CLI) | payer BC ==
[~2024-12-17] MED LIST changes: +ERGO125013 PO; -IBUP-1022 PO; +IBUP600T42 PO; -VITA500045 PO
== END ==
LOC: M WHC 14:46
PROVIDERS: ATTEND Nurse Practitioner Family
DX: Z12.31 Encounter for screening mammogram for malignant neoplasm of breast (principal); R92.313 Mammographic fatty tissue density, bilateral breasts

== ENCOUNTER → 2024-12-17 | Outpatient (REF) | payer BC ==
[2024-12-23 12:17] LABS: HPV VAGINAL Not Detected (NOT DETECT)
== END ==
LOC: M SFHCDERM 17:40
PROVIDERS: ATTEND Nurse Practitioner Family
DX: Z85.42 Personal history of malignant neoplasm of other parts of uterus (principal); Z12.72 Encounter for screening for malignant neoplasm of vagina; Z11.51 Encounter for screening for human papillomavirus (HPV)
CPT/HCPCS: 87624; G0123

== ENCOUNTER 2025-01-04 09:37 | Emergency (ER) | payer BC ==
[~2025-01-04] VITALS: Ht 160 cm; Wt 104.6 kg
[2025-01-04] MEDS ORDERED: LIDO4CRE12 TOP (15:09)
[2025-01-04] MEDS ORDERED: DICL20GE TP (15:09)
[2025-01-04] MEDS ORDERED: NAPR-837 PO (15:09)
[2025-01-04] MEDS: KETOROLAC 60 MG/2 ML VIAL IM ONE (15:11)
[2025-01-04 15:31] VITALS: BP 133/70; TEMP 98.2; O2SAT 100
== END 2025-01-04 15:50 | disposition home or self-care (01) ==
LOC: M ED 09:37
DX: S59.911A Unspecified injury of right forearm, initial encounter (principal); X50.0XXA Overexertion from strenuous movement or load, initial encounter; E78.5 Hyperlipidemia, unspecified; D50.9 Iron deficiency anemia, unspecified; E03.9 Hypothyroidism, unspecified; E11.9 Type 2 diabetes mellitus without complications; Z79.1 Long term (current) use of non-steroidal anti-inflammatories (NSAID); Z79.4 Long term (current) use of insulin; Z79.899 Other long term (current) drug therapy; Y92.89 Other specified places as the place of occurrence of the external cause; Y93.9 Activity, unspecified; Y99.9 Unspecified external cause status
CPT/HCPCS: 73090; 73130; 96372; 99283; J1885

== ENCOUNTER → 2025-01-18 | Outpatient (REF) | payer BC ==
[~2025-01-18] MED LIST changes: +DICL20GE TP; +LIDO4CRE12 TOP
== END ==
LOC: M PLALAB 15:27
PROVIDERS: ATTEND Student in an Organized Health Care Education/Training Program
DX: Z53.9 Procedure and treatment not carried out, unspecified reason (principal)

== ENCOUNTER → 2025-01-18 | Outpatient (REF) | payer BC | LOC: M SFHCWAGY 16:41 | PROVIDERS: ATTEND Student in an Organized Health Care Education/Training Program | DX: N32.81 Overactive bladder (principal) ==

== ENCOUNTER → 2025-02-12 | Outpatient (CLI) | payer BC ==
[~2025-02-12] MED LIST changes: +ATOR1TAB19 PO; +OXYB5TAB14 PO; +PREG100C2 PO; +TIZA10TA PO
[2025-02-12 11:15] LABS: PLATELET COUNT, AUTOMATED 246 10^3/uL (150-450)
[2025-02-12 11:40] LABS: ALT/SGPT 42 U/L (7.0-40); AST/SGOT 24 U/L (<34); CALCIUM LEVEL 9.2 MG/DL (8.5-10.1); CARBON DIOXIDE LEVEL 25 MMOL/L (20-31); CHLORIDE LEVEL 109 MMOL/L (98-107); CREATININE FOR GFR 0.48 MG/DL (0.55-1.30); GLOMERULAR FILTRATION RATE > 90.0 (>58); POTASSIUM SERUM 3.8 MMOL/L (3.5-5.1); SODIUM LEVEL 146 MMOL/L (136-145)
== END ==
LOC: M PLALAB 09:19
PROVIDERS: ATTEND Student in an Organized Health Care Education/Training Program
DX: N81.6 Rectocele (principal)

== ENCOUNTER → 2025-02-12 | Outpatient (CLI) | payer BC | LOC: M EKG 10:59 | PROVIDERS: ATTEND Student in an Organized Health Care Education/Training Program | DX: N81.6 Rectocele (principal) ==

== ENCOUNTER → 2025-02-19 | Outpatient (CLI) | payer BC ==
[~2025-02-19] VITALS: Ht 162.6 cm; Wt 107.0 kg
[~2025-02-19] MED LIST changes: +DEXTROSE 50% 50 ML SYRINGE IV PRN; +GLUCAGON INJ 1 MG VIAL SC PRN; +GLUCOSE 4 GM CHEW PO PRN; +INSULIN LISPRO (NovoLOG) PER UNIT SC PRN; +LR 1,000 ML IV SCH; +ceFAZolin SOD 2 GM IV ONCE IV ONE
[2025-02-19 13:59] VITALS: BP 114/67; TEMP 96.7; O2SAT 95
[2025-02-19 14:12] LABS: PLATELET COUNT, AUTOMATED 241 10^3/uL (150-450)
== END ==
LOC: M SDC 13:00 → EDSTATUS 15:00
PROVIDERS: ATTEND Student in an Organized Health Care Education/Training Program
DX: E04.9 Nontoxic goiter, unspecified (principal); I10 Essential (primary) hypertension; E11.9 Type 2 diabetes mellitus without complications

== ENCOUNTER 2025-02-26 06:03 | Day surgery (SDC) | payer BC ==
[~2025-02-26] VITALS: Ht 162.6 cm; Wt 108.0 kg
[~2025-02-26 06:03] MED LIST changes: -DEXTROSE 50% 50 ML SYRINGE IV PRN; -GLUCAGON INJ 1 MG VIAL SC PRN; -GLUCOSE 4 GM CHEW PO PRN; -INSULIN LISPRO (NovoLOG) PER UNIT SC PRN; -LR 1,000 ML IV SCH; -ceFAZolin SOD 2 GM IV ONCE IV ONE
[2025-02-26] MEDS ORDERED: LIDOCAINE 2% 100 MG/5 ML SDV (FOR ANES.) As Ordered ONE (06:49)
[2025-02-26] MEDS ORDERED: MIDAZOLAM INJ 2 MG/2 ML VIAL As Ordered ONE (06:49)
[2025-02-26] MEDS ORDERED: ONDANSETRON 4MG/2ML VIAL As Ordered ONE (06:50)
[2025-02-26] MEDS ORDERED: ACETAMINOPHEN 1000MG/100ML IV BAG As Ordered ONE (06:50)
[2025-02-26] MEDS ORDERED: dexAMETHasone 4 MG/ML 1 ML VIAL As Ordered ONE (06:50)
[2025-02-26] MEDS ORDERED: ROCURONIUM BROMIDE 50MG/5ML VIAL As Ordered ONE (07:35)
[2025-02-26] MEDS ORDERED: SUGAMMADEX SODIUM 200 MG/2 ML VIAL As Ordered ONE (08:08)
[2025-02-26] MEDS ORDERED: KETOROLAC 30 MG/ML 1 ML VIAL As Ordered ONE (08:08)
[2025-02-26] MEDS ORDERED: LR 1,000 ML IV SCH (09:05)
[2025-02-26] MEDS ORDERED: HYDROMORPHONE HCL 0.5 MG/0.5 ML SYRINGE IV PRN (09:05)
[2025-02-26] MEDS ORDERED: ONDANSETRON 4MG/2ML VIAL IV PRN (09:05)
[2025-02-26 10:00] VITALS: BP 142/80; TEMP 96.4; O2SAT 95
== END 2025-02-26 10:08 | disposition home or self-care (01) ==
LOC: M SDC 06:03
PROVIDERS: ATTEND Specialist
DX: N81.6 Rectocele (principal); E11.9 Type 2 diabetes mellitus without complications; I10 Essential (primary) hypertension; E03.9 Hypothyroidism, unspecified; E78.00 Pure hypercholesterolemia, unspecified; Z79.899 Other long term (current) drug therapy; Z79.890 Hormone replacement therapy; R32 Unspecified urinary incontinence; Z90.710 Acquired absence of both cervix and uterus; Z85.850 Personal history of malignant neoplasm of thyroid; Z85.42 Personal history of malignant neoplasm of other parts of uterus
CPT/HCPCS: 57250; J0131; J0665; J0688; J1100; J1885; J2250; J2405; J3010